=== PATIENT | female | born 1985 | race Caucasian/White ===

== ENCOUNTER 2024-11-15 16:29 | Emergency (ER) | payer SELFPAY ==
--- OUTSIDE RECORDS SUMMARY | 2024-11-15 16:33 | XMS REPORT | Continuity of Care Document ---
Author Name Unknown Address [address] [facility] [address] [place] [address] [facility] Address [address] [facility]. [address] [place] [address] Care Team Providers Care Record Keeper Name Role Phone Pcp, Patient Does Not Have A Primary Care Physic quintin Susana Hawk Attending Clinician Unavail able Ortho, Vls-Occup Therapy-Walkin Attending Clinic quintin Unavailable Chris Reed MD Attending Clinician [phone] CHRIS REED Attending Clinician Unavailable FRANKLIN WESTFALL Attending Clinician Unavailable FRANKLIN WESTFALL Attending Clinician Unavailable Franklin Mathias Attending Clinician [phone] Crystal Hernandez Attending Clinician Unavailable Therese Cortez Attending Clinician Unavailable Susana Hawk Attending Clinician [phone] Marquis Pak Attending Clinician Unavailab Dali Pugh Attending Clinician Unavailable Verónica Guido Attending Clinician Unavailable Ilana Miller Attending Clinician UnavailMatt Harris Attending Clinician Unavailable URBANO CALHOUN Attending Clinician Unavailable Only, Angel Uc Test Attending Clinician Unavailtasha pulliam Unknown, Attending Attending Clinician Unavailab Urbano Hwang MD Attending Clinician Genie Cisneros Attending Clinician Unavailable Genie Cisneros Attending Clinician [phone] Ilana Miller Attending Clinician [phone] Linnette Atkinson Attending Clinician [phone] FRANKLIN WESTFALL Admitting Clinician Unavailable Physician, No Primary or Family Admitting Clinic quintin Unavailable Marquis Pak Admitting Clinician Unavailab jose Payers Payer Name Policy Type Policy Number Effective Date Expirati on Date Source [employer] MEDICAID [id number] 2011 00:00:00 Problems Condition Name Condition Details Condition Category Status Onset Date Resolution Date Last Treatment Date Treating Clinician Comments Source Left hand pain Left hand pain Disease Active 2023-11 016 00:00: 00 [facility] Swelling of left hand Swelling of left hand Disease Active 2023-11 0-16 00:00: 00 [facility] Impaired dexterity Impaired dexterity Disease Active 2023-11 0-16 00:00: 00 [facility] Finger stiffness, left Finger stiffness, left Disease Active 2023-11 0-16 00:00: 00 [facility] No known active problems No known active problems Disease [facility] Syncope and collapse Syncope and collapse Problem [facility] [phone] Essential hypertensi on Problem [facility] Allergies, Adverse Reactions, Alerts Allergy Name Allergy Type Status Severity Reaction(s) Onset Date Inactive Date Treating Clinician Comments Source metronid azole DA Active SV ANAPHALACTIC SHOCK 2023-11 00:00: 00 [facility] lamotrig ine DA Active U ANAPHYLLAXIS 2023-11 00:00: 00 [facility] metronid azole DA Active SV ANAPHALACTIC SHOCK 04-03 00:00: 00 [facility] lamotrig ine DA Active U ANAPHYLLAXIS 6-03 00:00: 00 [facility] metronid azole DA Active SV ANAPHALACTIC SHOCK 2022-11 0 00:00: 00 [facility] lamotrig ine DA Active U ANAPHYLLAXIS 2022-11 022 00:00: 00 [facility] metronid azole DA Active SV ANAPHALACTIC SHOCK 8 00:00: 00 [facility] lamotrig ine DA Active U ANAPHYLLAXIS 8 00:00: 00 [facility] lamotrig ine DA Active U ANAPHYLLAXIS 515 00:00: 00 [facility] lamotrig ine drug allergy Active 11-21 00:00: 00 [facility] metronid azole drug allergy Active 11-21 00:00: 00 [facility] METRONID AZOLE HCL DRUG INGREDI Active High Anaphylaxis 02-20 00:00: 00 [facility] LAMOTRIG INE DRUG INGREDI Active High Anaphylaxis 02-20 00:00: 00 [facility] Metronid azole Hcl Propensi ty to adverse reaction s to drug Active Anaphylaxis 02-20 00:00: 00 [facility] Lamotrig ine Propensi ty to adverse reaction s Active Anaphylaxis 02-20 00:00: 00 [facility] metronid azole DA Active SV ANAPHALACTIC SHOCK 06-30 00:00: 00 [facility] lamotrig ine lamotrig ine Active Unknown [facility] metronid azole metronid azole Active Unknown [facility] Family History Family Member Diagnosis Comments Start Date Stop Date Sour e Father alcoholism (Cause Of ) 2015-11-21 00:00:00 2015-11-21 00:00:00 [facility] Mother hypertension 2015-11-21 00:00:00 2015-11-21 00:00:00 [facility] Mother Alive and well 2015-11-21 00:00:00 2015-11-21 00:00:00 [facility] Mother Thyroid disorder 2015-11-21 00:00:00 2015-11-21 00:00:00 [facility] Social History Social Habit Start Date Stop Date Quantity Comments Source Health-related Behavior 2024-03-29 00:00:00 [facility] Alcohol intake 2023-07-12 00:00:00 [facility] Tobacco use and exposure 2023-07-12 00:00:00 : No Details Available Quantity Details - : No Details Available [facility] Sexual orientation [facility] Sex Assigned At [facility] History of Tobacco Use [facility] Alcoholic beverage intake 2024-08-16 00:00:00 2024-08-16 00:00:00 [facility] History of Social function 2024-08-16 00:00:00 2024-08-16 00:00:00 [facility] Exposure to SARS-CoV-2 (event) 2022-06-16 00:00:00 2022-06-26 15:37:00 Not sure [facility] Smoking Status Start Date Stop Date Source Never smoked tobacco [facility] Unknown if ever smoked [facility] Medications Ordered Medication Name Filled Medication Name Start Date Stop Date Current Medication? Ordering Clinician Indication Dosage Frequency Signature (SIG) Comments Components Source lisinopriL 40 mg tablet 2023-11 14:48: 05 Yes 40mg Take 1 tablet by mouth in the morning. [facility] FLUoxetine (PROZAC) 20 mg capsule 2023-11 14:48: 05 Yes 20mg Take 1 capsule by mouth in the morning. [facility] FEXOFENADIN E HCL (LESLIE ORAL) 2023-11 12:37: 28 Yes Take by mouth. [facility] diphenhydrA MINE (BENADRYL) 25 mg capsule 2023-11 12:37: 28 Yes 25mg Take 1 capsule by mouth every 6 (six) hours as needed. [facility] Ibuprofen (ADVIL LIQUI-GEL) 200 mg Cap 2023-11 12:37: 28 Yes Take by mouth. [facility] acetaminoph en (TYLENOL) 325 mg tablet 2023-11 12:37: 28 Yes Take by mouth every 6 (six) hours as needed. [facility] HYDROcodone -acetaminop hen 5-325 mg tablet 2023-11 00:00: 00 08-16 04:59 :00 No [id number] 1{tbl} Take 1-2 tablets by mouth every 6 (six) hours as needed for Pain (scale 7-10) for up to 7 days. Indication s: acute pain [facility] lisinopril 10 mg tablet 2022-11 00:00: 00 No 1{table t} Q1D take 1 tablet by oral route every day [Pat Resp = 60 pct;] Group B Group B Group B [facility] fluoxetine 10 mg capsule 2022-11 00:00: 00 No 1{capsu le} Q1D take 1 capsule by oral route every day [Pat Resp = 60 pct;] Group B Group B [facility] Victoza 3-Luis 0.6 mg/0.1 mL (18 mg/3 mL) subcutaneou s pen injector 2022-11 00:00: 00 No inject (1.2MG) by subcutaneo us route every day . [Pat Resp = 60 pct;] Group B Group B Group B [facility] Victoza 18 MG/3ML Victoza 18 MG/3ML 2022-11 00:00: 00 No QD Victoza 18 MG/3ML FLUoxetine HCl 10 MG FLUoxetine HCl 10 MG 2022-11 00:00: 00 No 2{capsu le} FLUoxetine HCl 10 MG Victoza 3-Luis 0.6 mg/0.1 mL (18 mg/3 mL) subcutaneou s pen injector 07-22 00:00: 00 No 1.2 Q1D inject (1.2MG) by subcutaneo us route every day . For the first week, inject only 0.6 mg daily and increase to 1.2 mg if GI symptoms are tolerable [Pat Resp = 60 pct;] Group B [facility] lisinopril 10 mg tablet 07-15 15:27: 00 07-15 00:00 :00 No 1{table t} Q1D take 1 tablet by oral route every day [Pat Resp = 60 pct;] Group B [facility] Ozempic 0.25 mg or 0.5 mg (2 mg/3 mL) subcutaneou s pen injector 07-15 00:00: 00 No .5 Q1W inject (0.5MG) by subcutaneo us route every week on the same day of each week [Pat Resp = 60 pct;] Group B [facility] lisinopril 10 mg tablet 07-15 00:00: 00 No 1{table t} Q1D take 1 tablet by oral route every day [Pat Resp = 60 pct;] Group B Group B [facility] fluoxetine 10 mg capsule 07-15 00:00: 00 No 1{capsu le} Q1D take 1 capsule by oral route every day [Pat Resp = 60 pct;] Group B [facility] metoprolol succinate ER 25 mg tablet,exte nded release 24 hr 07-12 11:19: 00 07-12 00:00 :00 No 1{table t} Q1D take 1 tablet by oral route every day [Pat Resp = 60 pct;] Group B [facility] buspirone 5 mg tablet 06-28 10:59: 00 No 1{table t} Q12H take 1 tablet by oral route 2 times every day [Pat Resp = 60 pct;] Group B [facility] metoprolol succinate ER 25 mg tablet,exte nded release 24 hr 06-28 10:58: 00 No 1{table t} Q1D take 1 tablet by oral route every day [Pat Resp = 60 pct;] Group B [facility] lisinopril 10 mg tablet 06-28 10:58: 00 No 1{table t} Q1D take 1 tablet by oral route every day [Pat Resp = 60 pct;] Group B [facility] gabapentin 100 mg capsule 06-28 10:56: 00 06-28 00:00 :00 No 1{capsu le} Q8H take 1 Capsule by oral route 3 times every day [No discount] [facility] Lexapro 10 mg tablet 06-28 10:56: 00 06-28 00:00 :00 No 1{table t} Q1D take 1 tablet by oral route every day [No discount] [facility] predniSONE (DELTASONE) 20 mg tablet 03-09 00:00: 00 Yes 20mg daily x 5 days, then 20mg every other day x 5 doses [facility] predniSONE (DELTASONE) 20 mg tablet 03-02 00:00: 00 Yes 40mg Take 2 Tabs by mouth daily. [facility] triamcinolo ne acetonide (KENALOG) 0.1 % ointment 03-02 00:00: 00 Yes Apply to area(s) 2 (two) times daily. [facility] FEXOFENADIN E HCL (LESLIE ORAL) 02-22 14:53: 33 Yes Take by mouth. [facility] acetaminoph en (TYLENOL) 325 mg tablet 02-20 08:55: 48 Yes Take by mouth every 6 (six) hours as needed. [facility] diphenhydrA MINE (BENADRYL) 25 mg capsule 02-20 08:55: 47 Yes 25mg Take 25 mg by mouth every 6 (six) hours as needed. [facility] Ibuprofen (ADVIL LIQUI-GEL) 200 mg Cap 02-20 08:55: 47 Yes Take by mouth. [facility] triamcinolo ne acetonide (TRIDERM) 0.1 % cream 02-20 00:00: 00 Yes Apply to area(s) 2 (two) times daily. [facility] hydrOXYzine (ATARAX) 10 mg tablet 02-20 00:00: 00 Yes 10mg Take 1 Tab by mouth every 8 (eight) hours as needed for Itching. [facility] Lisinopril 40 MG Lisinopril 40 MG No 1{table t} QD Lisinopril 40 MG Vital Signs Vital Name Observation Time Observation Value Comments S ource Systolic blood pressure 2024-08-16 19:48:00 164 mm[Hg] [facility] Diastolic blood pressure 2024-08-16 19:48:00 108 mm[Hg] [facility] Heart rate 2024-08-16 19:48:00 75 /min [facility] Body height 2024-08-16 19:48:00 170.2 cm [facility] Body weight 2024-08-16 19:48:00 107.956 kg [facility] BMI 2024-08-16 19:48:00 37.28 kg/m2 [facility] Oxygen saturation in Arterial blood by Pulse oximetry 2024-08-16 19:48:00 98 /min [facility] Systolic blood pressure 2024-08-08 19:50:04 146 mm[Hg] [facility] Diastolic blood pressure 2024-08-08 19:50:04 94 mm[Hg] [facility] Heart rate 2024-08-08 19:50:04 73 /min [facility] Respiratory rate 2024-08-08 19:50:04 18 /min [facility] Oxygen saturation in Arterial blood by Pulse oximetry 2024-08-08 19:50:04 97 /min [facility] Body temperature 2024-08-08 17:37:00 36.61 Luz Marina [facility] Body height 2024-08-08 17:34:00 170.2 cm [facility] Body weight 2024-08-08 17:34:00 104.327 kg [facility] BMI 2024-08-08 17:34:00 36.02 kg/m2 [facility] height 2024-05-29 09:30:00 67 [in_i] [facility] weight-kg 2024-05-29 09:30:00 105.69 kg [facility] bmi 2024-05-29 09:30:00 36.49 kg/m2 [facility] temperature 2024-05-29 09:30:00 97.9 [degF] [facility] heart rate 2024-05-29 09:30:00 76 /min [facility] blood pressure systolic 2024-05-29 09:30:00 166 mm[Hg] [facility] blood pressure diastolic 2024-05-29 09:30:00 114 mm[Hg] [facility] Body height 2023-07-12 11:26:00 170.18 cm [facility] Body Weight 2023-07-12 11:26:00 109.316 kg [facility] Intravascular Systolic 2023-07-12 11:26:00 125 mm[Hg] [facility] Intravascular Diastolic 2023-07-12 11:26:00 74 mm[Hg] [facility] Heart Rate 2023-07-12 11:26:00 76 /min [facility] Body Temperature 2023-07-12 11:26:00 36.67 Luz Marina [facility] Respiratory rate 2023-07-12 11:26:00 18 /min [facility] Body mass index 2023-07-12 11:26:00 37.75 kg/m2 [facility] SaO2 % BldA PulseOx 2023-07-12 11:26:00 98 /min [facility] Body height 2023-06-28 10:59:00 170.18 cm [facility] Body Weight 2023-06-28 10:59:00 108.409 kg [facility] Intravascular Systolic 2023-06-28 10:59:00 154 mm[Hg] [facility] Intravascular Diastolic 2023-06-28 10:59:00 88 mm[Hg] [facility] Heart Rate 2023-06-28 10:59:00 62 /min [facility] Body Temperature 2023-06-28 10:59:00 36.56 Luz Marina [facility] Respiratory rate 2023-06-28 10:59:00 18 /min [facility] Body mass index 2023-06-28 10:59:00 37.43 kg/m2 [facility] SaO2 % BldA PulseOx 2023-06-28 10:59:00 99 /min [facility] Procedures Procedure Date / Time Performed Performing Clinician Source POCT TEST 2024-08-08 19:02:00 Reina Westfall [facility] XR HAND 3+ VW LEFT 2024-08-08 18:05:00 Franklin Westfall [facility] Established Patient Office Visit-Level Four 2023-09-20 00:00:00 [facility] Established Patient Office Visit-Level Three 2023-08-09 00:00:00 [facility] Individual & Fam psychotherapy (60 min.) 2023-07-26 00:00:00 [facility] ASSAY OF FREE THYROXINE 4 2023-07-12 00:00:00 [facility] Thyroid Stimulating Hormone (TSH) 2023-07-12 00:00:00 [facility] Comprehensive Metabolic Panel 2023-07-12 00:00:00 [facility] Lipid Panel 2023-07-12 00:00:00 [facility] Hepatitis Panel - Acute 2023-07-12 00:00:00 [facility] Hemoglobin A1C 2023-07-12 00:00:00 [facility] Complete Blood Count (CBC) 2023-07-12 00:00:00 [facility] Syphilis Test, qualitative 2023-07-12 00:00:00 [facility] HIV-1 antigen(s), HIV-1 and HIV-2 antibodies, single result 2023-07-12 00:00:00 [facility] Established Patient Office Visit-Level Four 2023-07-12 00:00:00 [facility] EKG (electrocardiogram) 2023-06-28 00:00:00 [facility] Established Patient Office Visit-Level Four 2023-06-28 00:00:00 [facility] Established Patient Office Visit-Level Three 2018-12-27 00:00:00 [facility] EKG (electrocardiogram) 2016-02-05 00:00:00 [facility] Established Patient Office Visit-Level Three 2016-02-05 00:00:00 [facility] Left Without Being Seen 2016-01-29 00:00:00 [facility] EKG (electrocardiogram) 2016-01-01 00:00:00 [facility] Established Patient Office Visit-Level Four 2016-01-01 00:00:00 [facility] PSYTX PT&/FAMILY 60 MINUTES 2015-12-31 00:00:00 [facility] New Patient Office Visit-Level Three 2015-11-21 00:00:00 [facility] Complete Blood Count (CBC) 2015-11-21 00:00:00 [facility] Comprehensive Metabolic Panel 2015-11-21 00:00:00 [facility] ASSAY OF FREE THYROXINE 4 2015-11-21 00:00:00 [facility] Thyroxine, total 2015-11-21 00:00:00 Mauro [facility] Thyroid Stimulating Hormone (TSH) 2015-11-21 00:00:00 [facility] Thyroid Hormone (T3&T4) uptake or binding ratio 2015-11-21 00:00:00 [facility] Limited Oral Evaluation Problem Focused 2015-09-06 00:00:00 [facility] Encounters Start Date/Time End Date/Time Encounter Type Admission Type Attending Clinicians Care Facility Care Department Encounter ID Source 2024-07-24 10:08:02 Outpatient Susana Hawk [facility] [id number] Natalie fuentes 2024-05-29 09:05:01 Outpatient Susana Hawk [facility] [id number] Natalie fuentes 2024-08-24 00:00:00 2024-08-24 00:00:00 (TEL) [facility] [id number] Natalie fuentes 2024-08-16 15:00:00 2024-08-16 15:30:00 Ancillary Visit Ortho, Vls-Occup Therapy-Chris Mccollum V[facility]Occup Therapy-[facility] [id number] [facility] 2024-08-16 14:15:00 2024-08-16 15:03:22 Outpatient CHRIS COTO [facility] [id number] [facility] 2024-08-16 14:15:00 2024-08-16 15:03:22 Office Visit Chris Reed [facility] [id number]..[id number] [facility] 2024-08-16 15:00:00 2024-08-16 15:00:00 Outpatient CHRIS COTO [facility] [id number] [facility] 2024-08-08 12:37:00 2024-08-08 14:51:00 Emergency X FRANKLIN WESTFALL [facility] ERT [id number] [facility] 2024-08-08 12:37:00 2024-08-08 14:51:00 Emergency Franklin Westfall [facility] [id number] [facility] 2024-08-07 10:09:00 2024-08-07 11:21:00 Emergency EM Crystal Hernandez [facility] [id number] [facility] 2024-07-24 00:00:00 2024-07-24 00:00:00 (TEL) CLS CLS [id number] [facility] 2024-07-24 00:00:00 2024-07-24 00:00:00 (TEL) CLS CLS [id number] [facility] 2024-05-29 00:00:00 2024-05-29 00:00:00 Office Visit- Est Pt.- Level 4 CLS CLS [id number] [facility] ties 2024-04-03 22:27:00 2024-04-04 00:15:00 Emergency EM Therese Cortez [facility] [id number] [facility] 2024-03-29 10:32:00 2024-03-29 10:32:00 Outpatient Susana Hawk [facility] CHW [id number] [facility] 2024-03-29 10:32:00 2024-03-29 10:32:00 Outpatient Susana Hawk Ramez [id number] [facility] 2023-09-22 14:19:00 2023-09-22 14:19:00 [facility] [id number] 2023-09-22 14:19:00 2023-09-22 14:19:00 Outpatient HawkSusana Harper CHW [id number] [facility] 2023-09-20 09:30:00 2023-09-20 09:30:00 Outpatient [facility] Services CHW CHW [id number] [facility] 2023-09-20 09:30:00 2023-09-20 09:30:00 Establishshasha dowell Patient Office Visit-[facility] Carine Susana Harper W [id number] [facility] 2023-08-23 13:13:00 2023-08-24 15:25:00 Inpatient Marquis Yu [facility] [id number] [facility] 2023-08-22 04:07:00 2023-08-22 09:55:00 Emergency EM ZaidDali [facility] [id number] [facility] 2023-08-20 09:20:00 2023-08-20 09:20:00 Outpatient Verónica Guido W CHW [id number] [facility] 2023-08-20 09:20:00 2023-08-20 09:20:00 Outpatient W [id number] [facility] 2023-08-19 17:59:00 2023-08-19 17:59:00 Outpatient Susana Hawk Harper W W [id number] [facility] 2023-08-09 11:30:00 2023-08-09 11:30:00 Outpatient In[facility], Services CHW W [id number] [facility] 2023-08-09 11:30:00 2023-08-09 11:30:00 Jessie dowell Patient Office Visit-Aimee HawkSusana Harper W [id number] [facility] 2023-07-26 09:00:00 2023-07-26 09:00:00 Outpatient Ilana Miller W W [id number] [facility] 2023-07-26 09:00:00 2023-07-26 09:00:00 Individual & Fam psychother apy (60 min.) W [id number] [facility] 2023-07-23 09:36:00 2023-07-23 09:36:00 [facility] [id number] 2023-07-22 14:07:00 2023-07-22 14:07:00 [facility] [id number] [facility] 2023-07-22 14:07:00 2023-07-22 14:07:00 Outpatient Susana Hawk W [id number] [facility] 2023-07-21 16:03:00 2023-07-21 16:03:00 [facility] [id number] [facility] 2023-07-19 11:46:00 2023-07-19 11:46:00 [facility] [id number] [facility] 2023-07-19 11:46:00 2023-07-19 11:46:00 Outpatient Susana Hawk [facility] [id number] [facility] 2023-07-15 15:26:00 2023-07-15 15:26:00 [facility] [id number] [facility] 2023-07-15 15:26:00 2023-07-15 15:26:00 Outpatient Susana Hawk W [id number] [facility] 2023-07-12 11:30:00 2023-07-12 11:30:00 [facility] [id number] [facility] 2023-07-12 11:30:00 2023-07-12 11:30:00 Jessie dowell Patient Office Visit-Aimee Restrepo Susana Hawk [facility] [id number] [facility] 2023-07-01 10:45:00 2023-07-01 10:45:00 [facility] [id number] [facility] 2023-07-01 10:45:00 2023-07-01 10:45:00 Outpatient Susana Hawk [facility] [id number] [facility] 2023-06-30 09:12:00 2023-06-30 09:12:00 [facility] [id number] [facility] 2023-06-30 09:12:00 2023-06-30 09:12:00 Outpatient Susana Hawk W [id number] [facility] 2023-06-29 20:43:00 2023-06-29 23:51:00 Emergency EM Matt Guido HCACL TERS [id number] 87 [facility] 2023-06-28 11:00:00 2023-06-28 11:00:00 Outpatient Susana Hawk Harper [facility] CHW [id number] [facility] 2023-06-28 11:00:00 2023-06-28 11:00:00 Jessie dowell Patient Office Visit-[facility] HawkSusana french Harper [facility] [id number] 27-44ba-85b [id number] 9af [id number] [facility] 2022-06-26 15:15:00 2022-06-26 15:42:39 Outpatient URBANO VILLANUEVA [facility] [id number] [facility] 2022-06-26 15:15:00 2022-06-26 15:42:39 Laboratory Only Only, [facility] Test Unknown, Attending Urbano Calhoun [facility] [id number] [id number] [id number] [facility] 2022-06-26 15:15:00 2022-06-26 15:15:00 Outpatient URBANO VILLANUEVA [facility] [id number] [facility] 2018-12-27 15:40:00 2018-12-27 15:40:00 Outpatient Genie Cisneros W CHW [id number] [facility] 2018-12-27 15:40:00 2018-12-27 15:40:00 Establishe d Patient Office Visit-Aimee l Genie Marr [facility] [id number] 27-44ba-85b [id number] 9af [id number] [facility] 2016-02-05 11:15:00 2016-02-05 11:15:00 Jessie d Patient Office Visit-Aimee Romero [facility] [id number] 27-44ba-85b [id number] 9af [id number] [facility] 2016-01-29 09:00:00 2016-01-29 09:00:00 Outpatient W [id number] 27-44ba-85b [id number] 9af [id number] [facility] 2016-01-01 09:15:00 2016-01-01 09:15:00 Jessie d Patient Office Visit-Aimee Restrepo [facility] [id number] 27-44ba-85b [id number] 9af [id number] [facility] 2015-12-31 09:00:00 2015-12-31 09:00:00 PSYTX PT&/FAMILY 60 MINUTES Ilana Miller [facility] [id number] 27-44ba-85b [id number] 9af [id number] [facility] 2015-11-21 10:45:00 2015-11-21 10:45:00 New Patient Office Visit-Aimee Romero [facility] [id number] 27-44ba-85b [id number] 9af [id number] [facility] 2015-09-06 09:00:00 2015-09-06 09:00:00 Outpatient Linnette Atkinson [facility] [id number] 27-44ba-85b [id number] 9af [id number] [facility] Results Test Description Test Time Test Comments Results Result Co mments Source [facility] [id number] 18:49:45ORDERING PHYSICIAN: FRANKLIN WESTFALL THREE VIEWS LEFT HAND. DATE: 08/08/2024 1:48 PM CLINICAL INDICATIONS: hand pain, concern for fracture COMPARISON: None. FINDINGS: ?Three views of the left hand demonstrate no evidence for acutefracture, subluxation or destructive osseous lesion. ?No significant soft tissue swelling or radiopaque foreign body is identified.[facility] HEAD/BRAIN W/O [id number] 23:13:00 [facility] : 1985 Sex: F Name: BASIM GUERRERO [place] FSED : 1985 Age/S: 38 / F Unit #: [id number] Loc: [facility] [place], [place] Phys: Therese Cortez MD Acct: [id number] Dis Date: Status: PRE ER PHONE #: Exam Date: 04/03/2024 3463 FAX #: Reason: FALL EXAMS: CPT CODE: [id number] CT HEAD/BRAIN W/O CONT 65711 EXAM:- CT HEAD/BRAIN W/O CONT HISTORY: FALL . TECHNIQUE: CT of the brain without contrast: Transaxial images were performed through the brain without intravenous contrast. CT scan performed using appropriate/available dose optimization/reduction techniques. Automated exposure control, adjustment of the MAA and/or KV according to patient size, and or use of IV iterative reconstruction images. Dictation/location code: H-100 COMPARISON: None. FINDINGS: Posterior fossa: Normal. Supratentorial: No acute i nfarct, hemorrhage, edema, masses or midline shift seen. The ventricles are not enlarged. Other: None. IMPRESSION: No acute intracranial abnormality. at 2313 Reported and signed by: Abiodun Andrade M.D. CC: Therese Cortez MD Technologist:Marci Magallon, RT(R)(CT) CTDI: DLP: Trnscb Date/Time: 04/03/2024 (2312) [email or web address] Orig Print D/T: S: 04/03/2024 (2315) PAGE 1 Signed Report- XR CHEST 1 [id number] 23:10:00 [facility] : 1985 Sex: F FAX: Therese Ortiz MD [phone] [place]: St: PRE Name: BASIM GUERRERO [place] FSED : 1985 Age/S: 38/F Unit #: [id number] Loc: [facility] [place], [place] Phys: Therese Cortez MD Acct: [id number] DisDate: Status: PRE ER PHONE #: Exam Date: 04/03/20241 FAX #: Reason: FALL EXAMS: CPT CODE: [id number] XR CHEST 1 V 06811 Chest Radiograph History: FALL Comparison: June 29, 2023 Location: H45 A single frontal view of the chest is submitted. The heart appears unchanged in size. Pulmonary vasculature is unremarkable. The visualized lung cruz appear to be free of disease. The bones appear unchanged. IMPRESSION: There is no radiographic evidence of acute cardiopulmonary disease. at 2310 Reported and signed by: Hebert Wiley M.D. CC: Therese Cortez MD Technologist: RT Mitchel(R)(CT) Trnscrd Date/Time/By: 04/03/2024 (2309) : By: ElePMT Orig Print D/T: S: 04/03/2024 (2312) PAGE 1 Signed ReportCOMPREHENSIVE METABOLIC [id number] 03:05:00* Test Item Value Reference Range Interpretation Comme nts SODIUM (test code = NA) 139 mmol/l 134.0-147.0 N POTASSIUM (test code = K) 3.3 mmol/L 3.6-5.2 L CHLORIDE (test code = CL) 107 mmol/l 98.0-107.0 N CARBON DIOXIDE (test code = CO2) 25.1 mmol/l 21.0-33.0 N ANION GAP (test code = GAP) 10.2 0-20 N GLUCOSE (test code = GLU) 86 mg/dl 70.0-110.0 N BLOOD UREA NITROGEN (test code = BUN) 6 mg/dl 7.0-18.0 L GLOMERULAR FILTRATION RATE (test code = GFR) 88 mL/min The Glomerular Filtration Rate is a calculated parameterbased on serum Creatinine, patient age and sex. GFR valuesless than 60 mL/min/1.73 square meters are indicative ofChronic Kidney Disease. Values less than 15 mL/min/1.73square meters indicate Kidney failure. The calculation forGFR is based on the CKD-EPI (2020) calculation. This formulais race indifferent and is the recommended formula for GFRby the National Kidney Foundation for Adults.The GFR will not calculate if the sex is unknown or if thepatient's age is <18 years. CREATININE (test code = CREAT) 0.86 mg/dL 0.60-1.30 N ESTIMATED CREAT CLEARANCE (test code = ECRCL) 85 mL/min >30 TOTAL PROTEIN (test code = PROT) 6.1 gm/dL 6.4-8.2 L ALBUMIN (test code = ALB) 2.4 gm/dl 3.2-4.7 L CALCIUM (test code = CA) 7.6 mg/dl 8.0-10.5 L BILIRUBIN TOTAL (test code = BILT) 0.3 mg/dl 0.0-1.0 N SGOT/AST (test code = AST) 24 Units/L 15-37 N SGPT/ALT (test code = ALT) 30 Units/L 12.0-78.0 N ALKALINE PHOSPHATASE TOTAL (test code = ALKP) 61 Units/L 50.0-136.0 N CBC W/AUTO [id number] 02:43:00* Test Item Value Reference Range Interpretation Comme nts WHITE BLOOD CELL (test code = WBC) 7.7 K/mm3 4.5-11.0 N RED BLOOD CELL (test code = RBC) 3.78 M/mm3 3.80-5.20 L HEMOGLOBIN (test code = HGB) 10.4 gm/dL 12.0-16.0 L HEMATOCRIT (test code = HCT) 32.5 % 36.0-48.0 L MEAN CELL VOLUME (test code = MCV) 86.0 UM3 82.0-99.0 N MEAN CELL HGB (test code = MCH) 27.5 UUG 25.5-32.5 N MEAN CELL HGB CONCETRATION (test code = MCHC) 32.0 gm/dL 29.0-35.5 N RED CELL DISTRIBUTION WIDTH (test code = RDW) 14.1 % 11.5-15.0 N RED CELL DISTRIBUTION WIDTH SD (test code = RDW-SD) 44.2 fL 34.8-50.2 N PLATELET COUNT (test code = PLT) 244 K/mm3 150-400 N MEAN PLATELET VOLUME (test c ode = MPV) 9.2 fl 7.4-10.4 N NEUTROPHIL % (test code = NT%) 61.5 % 49.0-76.0 N IMMATURE GRANULOCYTE % (test code = IG%) 0.3 % 0.0-0.4 N LYMPHOCYTE % (test code = LY%) 26.2 % 23.0-38.0 N MONOCYTE % (test code = MO%) 6.6 % 1.0-10.0 N EOSINOPHIL % (test code = EO%) 5.0 % 1.0-5.0 N BASOPHIL % (test code = BA%) 0.4 % 0.0-1.0 N NUCLEATED RBC % (test code = NRBC%) 0.0 % 0.0-0.1 N NEUTROPHIL # (test code = NT#) 4.7 K/mm3 2.4-6.3 N IMMATURE GRANULOCYTE # (test code = IG#) 0.02 x10 3/uL 0.00-0.07 N LYMPHOCYTE # (test code = LY#) 2.0 K/mm3 1.2-4.0 N MONOCYTE # (test code = MO#) 0.5 K/mm3 0.0-0.6 N EOSINOPHIL # (test code = EO#) 0.4 K/MM3 0.0-0.7 N BASOPHIL # (test code = BA#) 0.0 K/mm3 0.0-0.2 N NUCLEATED RBC # (test code = NRBC#) 0.00 X10 3uL 0.00-0.01 N - XR ABDOMEN 1 [id number] 12:17:00 [facility] : 1985 Sex: FFAX: Marquis Heller [phone] [place]: St: ADM FAX: Tate Morales [phone] - Name: BASIM GUERRERO [facility] : 1985 Age/S: 38/F [address] Unit #: [id number] Loc: [address] [place], [place] Phys: Tate Olmedo [address] Acct: [id number] Dis Date: Status: ADM IN PHONE #: [phone] Exam Date: 08/23/2023 1200 FAX #: [phone] Reason: Progression of kidney stone EXAMS: CPT CODE: [id number] XR ABDOMEN 1 V 70452 REASON FOR EXAM: Right renal stone in the pelvis. Abdomen, single view. COMPARISON: CT abdomen pelvis from August 22, 2023. No calculus seen in the distal third of the ureter. This may imply passage of the stone. No other renal outline calculi. Normal gas pattern. IUD in the mid pelvis. IMPRESSION: No identifiable right distal ureteral calculus. This may have been passed. If suspicious symptoms continue, repeat CT, unenhanced of the pelvis only may be needed. Normal gas pattern. Location: U19 at 1217 Reported and signed by: Tyler Seals MD CC: Marquis Pak MD;Tate MONTAGUE Technologist: VIN TORRES Trnscrd Date/Time/By: 08/23/2023 (1217) : By: [id number] PAGE 1 Signed Report FAX: Marquis Heller [phone] [place]: St: ADM FAX: Tate Morales [phone] Name: BASIM GUERRERO [facility] : 1985 Age/S: 38/F [address] Unit #: [id number] Loc: [address] [place], [place] Phys: Tate Olmedo [address] Acct: [id number] Dis Date: Status: ADM IN PHONE #: [phone] Exam Date: 08/23/2023 1200 FAX #: [phone] Reason: Progression of kidney stone EXAMS: CPT CODE: [id number] XR ABDOMEN 1 V 56257 (Continued) Orig Print D/T: S: 08/23/2023 (1220) PAGE 2 Signed ReportCOMPREHENSIVE METABOLIC [id number] 19:03:00* Test Item Value Reference Range Interpretation Comme nts SODIUM (test code = NA) 135 mmol/l 134.0-147.0 N POTASSIUM (test code = K) 3.4 mmol/L 3.6-5.2 L CHLORIDE (test code = CL) 104 mmol/l 98.0-107.0 N CARBON DIOXIDE (test code = CO2) 25.1 mmol/l 21.0-33.0 N ANION GAP (test code = GAP) 9.3 0-20 N GLUCOSE (test code = GLU) 97 mg/dl 70.0-110.0 N BLOOD UREA NITROGEN (test code = BUN) 7 mg/dl 7.0-18.0 N GLOMERULAR FILTRATION RATE (test code = GFR) 73 mL/min The Glomerular Filtration Rate is a calculated parameterbased on serum Creatinine, patient age and sex. GFR valuesless than 60 mL/min/1.73 square meters are indicative ofChronic Kidney Disease. Values less than 15 mL/min/1.73square meters indicate Kidney failure. The calculation forGFR is based on the CKD-EPI (2020) calculation. This formulais race indifferent and is the recommended formula for GFRby the National Kidney Foundation for Adults.The GFR will not calculate if the sex is unknown or if thepatient's age is <18 years. CREATININE (test code = CREAT) 1.01 mg/dL 0.60-1.30 N ESTIMATED CREAT CLEARANCE (test code = ECRCL) 73 mL/min >30 TOTAL PROTEIN (test code = PROT) 6.3 GM/DL 6.0-8.1 N ALBUMIN (test code = ALB) 2.7 gm/dL 3.2-4.7 L CALCIUM (test code = CA) 7.4 mg/dl 8.0-10.5 L BILIRUBIN TOTAL (test code = BILT) 0.3 mg/dl 0.0-1.0 N SGOT/AST (test code = AST) 43 Units/L 15-37 H SGPT/ALT (test code = ALT) 39 Units/L 12.0-78.0 N ALKALINE PHOSPHATASE TOTAL (test code = ALKP) 66 Units/L 50.0-136.0 N [id number] 19:03:00* Test Item Value Reference Range Interpretation Comme nts MAGNESIUM (test code = MAG) 1.6 mg/dl 1.8-2.4 L CBC W/AUTO [id number] 18:47:00* Test Item Value Reference Range Interpretation Comme nts WHITE BLOOD CELL (test code = WBC) 12.7 K/mm3 4.5-11.0 H RED BLOOD CELL (test code = RBC) 4.01 M/mm3 3.80-5.20 N HEMOGLOBIN (test code = HGB) 11.2 gm/dL 12.0-16.0 L HEMATOCRIT (test code = HCT) 34.4 % 36.0-48.0 L MEAN CELL VOLUME (test code = MCV) 85.8 UM3 82.0-99.0 N MEAN CELL HGB (test code = MCH) 27.9 UUG 25.5-32.5 N MEAN CELL HGB CONCETRATION (test code = MCHC) 32.6 gm/dL 29.0-35.5 N RED CELL DISTRIBUTION WIDTH (test code = RDW) 13.6 % 11.5-15.0 N RED CELL DISTRIBUTION WIDTH SD (test code = RDW-SD) 43.0 fL 34.8-50.2 N PLATELET COUNT (test code = PLT) 262 K/mm3 150-400 N MEAN PLATELET VOLUME (test c ode = MPV) 9.7 fl 7.4-10.4 N NEUTROPHIL % (test code = NT%) 80.0 % 49.0-76.0 H IMMATURE GRANULOCYTE % (test code = IG%) 0.3 % 0.0-0.4 N LYMPHOCYTE % (test code = LY%) 12.7 % 23.0-38.0 L MONOCYTE % (test code = MO%) 6.4 % 1.0-10.0 N EOSINOPHIL % (test code = EO%) 0.3 % 1.0-5.0 L BASOPHIL % (test code = BA%) 0.3 % 0.0-1.0 N NUCLEATED RBC % (test code = NRBC%) 0.0 % 0.0-0.1 N NEUTROPHIL # (test code = NT#) 10.2 K/mm3 2.4-6.3 H IMMATURE GRANULOCYTE # (test code = IG#) 0.04 x10 3/uL 0.00-0.07 N LYMPHOCYTE # (test code = LY#) 1.6 K/mm3 1.2-4.0 N MONOCYTE # (test code = MO#) 0.8 K/mm3 0.0-0.6 H EOSINOPHIL # (test code = EO#) 0.0 K/MM3 0.0-0.7 N BASOPHIL # (test code = BA#) 0.0 K/mm3 0.0-0.2 N NUCLEATED RBC # (test code = NRBC#) 0.00 X10 3uL 0.00-0.01 N [id number] 11:46:00* Test Item Value Reference Range Interpretation Comme nts GLUBED (test code = GLUBED) 90 mg/dL 70-110 N - CT ABD PELVIS W/O [id number] 05:38:00 [facility] : 1985 Sex: F Name: BASIM GUERRERO [place] [facility] : 1985 Age/S: 38 / F Unit #: [id number] Loc: [place], [place] Phys: Dali Mar DO Acct: [id number] Dis Date: Status: REG ER PHONE #: Exam Date: 08/22/2023 3312 FAX #: Reason: right flank pain EXAMS: CPT CODE: [id number] CT ABD PELVIS W/O CONT 25252 EXAMINATION: - CT ABD PELVIS W/O CONT CLINICAL INDICATION: Female, 38 years old with right flank pain TECHNIQUE: Thin section axial noncontrast contiguous images were obtained through the abdomen and pelvis followed by coronal and sagittal multiplanar reformations. One or more of the following dose reduction techniques were used: Automated exposure control, adjustment of the mA and/or kV accordingto patient size, and/or iterative reconstruction. Unless otherwise specified, incidental findings do not require dedicated imaging follow-up. COMPARISON: None FINDINGS: Characterization of the solid organs is limited by lack of contrast media. Lower Chest: Visualized lung bases are clear. Heart is normal in size. No pericardial or pleural effusion. Liver: Normal in size and contour. Bile ducts are of normal caliber. Gallbladder: No stones, wall thickening, or pericholecystic fluid. Pancreas: Normal appearance. Spleen: Normal in size and contour. Adrenals: Normal configuration. Kidneys and ureters: Moderate right hydronephrosis and hydroureter secondary to a 5 mm right distal 3rd ureteric sto ne. Punctate 1 mm nonobstructing left renal calculus, scattered punctate 1 mm calculi are present within the right kidney. Bladder/Reproductive Organs: Normal in appearance. Uterus is retroverted, IUD noted. Bowel: Moderate feces, no ileus or obstruction. Normal appendix. No PAGE 1 Signed Report (CONTINUED) Name: BASIM GUERRERO [place] [facility] : 1985 Age/S: 38 / F Unit #: [id number] Loc: [place], [place] Phys: Dali Mar DO Acct: [id number] Dis Date: Status: REG ER PHONE #: Exam Date: 08/22/2023 0518 FAX #: Reason: right flank pain EXAMS: CPT CODE: [id number] CT ABD PELVIS W/O CONT 47186 (Continued) free air, free fluid, or fluid collection. Lymph nodes: There are no pathologically enlarged abdominopelvic lymph nodes. Retroperitoneum: No mass or hemorrhage. Abdominal aorta and inferior vena cava are normal in course and caliber. Abdominal wall: No hernia or mass. Bones: No acute abnormality or suspicious bony lesion. IMPRESSION: 1. 5.1 mm right distal 3rd ureteric stone with moderate right hydronephrosis and hydroureter. at 0538 Reported and signed by: Woodrow Casiano M.D. CC: Dali Mar DO Technologist:Renetta Samaniego RT(R)(CT) CTDI: DLP: Trnscb Date/Time: 08/22/2023 (0538) [id number] Orig Print D/T: S: 08/22/2023 (0527) PAGE 2 Signed ReportCOMPREHENSIVE METABOLIC [id number] 04:58:00* Test Item Value Reference Range Interpretation Comme nts POC SODIUM (test code = ANDREAS) 142 mmol/L 134-147 N Testing performe d at:[facility] [id number] [place] [address] POC POTASSIUM (test code = EDK) 3.4 mmol/L 3.4-5.8 N POC CHLORIDE (test code = EDCL) 106 mmol/L 100-108 N POC TCO2 (test code = EDTCO2) 26 mmol/L 24-30 N POC ANION GAP (test code = EDAGAP) 10 0-20 N POC BUN (test code = EDBUN) 10 mg/dL 3-25 N POC CREATININE (test code = EDCRE) 0.9 mg/dL 0.6-1.3 N POC GLUCOSE (test code = EDGLUC) 114 mg/dL 70-110 H POC CALCIUM (test code = EDCA) 9.8 mg/dL 7.0-11.0 N POC eGFR (test code = EDGFR) 83 mL/min See_Comment eGFR is not calc ulated if age <18 yrs, if the sex in EHR islisted as unknown or the creatinine level is below assayrange.This result value is determined by the eGFR 2020 CKD-EPIformula using serum creatinine, age and sex, excluding arace coefficient. The assay for creatinine is traceable tothe IDOH reference method. Chronic kidney disease (CKD) maynot be detectable based solely on creatinine levels. A eGFR> 60 does not rule out mild renal disease. To distinguishnormal renal function from mild renal disease, furtherlaboratory testing may be required. [Automated message] The system which generated this result transmitted reference range: >or=60. The reference range was not used to interpret this result as normal/abnormal. POC ALBUMIN (test code = EDALB) 3.4 g/dL 3.5-5.0 L POC TOTAL PROTEIN (test code = EDTP) 7.5 g/dL 5.0-8.0 N POC BILIRUBIN TOTAL (test code = EDTBIL) 0.4 mg/dL 0.0-1.0 N POC AST (test code = EDAST) 21 U/L 15-37 N POC ALT (test code = EDALT) 24 U/L 30-65 L POC ALKALINE PHOSPHATASE (test code = EDALP) 76 U/L 20-125 N URINALYSIS [id number] 04:53:00* Test Item Value Reference Range Interpretation Comme nts POC URINE COLOR (test code = EDCOLU) Yellow Yellow Testing performe d at:[facility] [address] [place] [address] POC URINE CLARITY (test code = EDCLARITY) Clear Clear POC URINE GLUCOSE (test code = EDGLUU) Negative Negative POC URINE BILIRUBIN (test code = EDBILIU) Negative Negative POC URINE KETONES (test code = EDKETU) Negative Negative POC URINE SPECIFIC GRAVITY (test code = EDSGU) >= 1.030 1.001-1.035 N POC URINE BLOOD (test code = EDBLDU) Large Negative A POC URINE pH (test code = EDPH) 5.5 5.0-8.0 N POC URINE PROTEIN (test code = EDPROTU) Negative Negative POC URINE UROBILINOGEN (test code = EDURO) 0.2 E.U/dL 0.2-1.0 POC URINE NITRITE (test code = EDNIT) Negative Negative POC URINE LEUKOCYTE ESTERASE (test code = EDLEUK) Negative Negative COMPLETE BLOOD COUNT (CBC)2023-08-22 04:49:00* Test Item Value Reference Range Interpretation Comme nts POC WHITE BLOOD CELL (test code = EDWBC) 9.0 10 3/uL 4.1-10.4 N Testing perf ormed at:[facility] [address] [place] [address] POC RED BLOOD CELL (test code = EDRBC) 4.49 10 6/uL 3.43-5.21 N POC HEMOGLOBIN (test code = EDHGB) 12.6 g/dL 10.9-14.8 N POC HEMATOCRIT (test code = EDHCT) 37.8 % 32.5-46.2 N POC MEAN CELL VOLUME (test code = EDMCV) 84.2 fL 82.5-98.0 N POC MEAN CELL HEMOGLOBIN (test code = EDMCH) 28.1 pg 26.1-32.9 N POC MEAN CELL HGB CONC (test code = EDMCHC) 33.3 g/dL 30.7-34.9 N POC PLATELET COUNT (test code = EDPLT) 336 10 3/uL 136-388 N POC RED CELL DISTRIB WIDTH (test code = EDRDW-CV) 14.1 % 11.8-16.4 N POC LYMPHOCYTES % (test code = EDLYM%) 29.0 % 13.9-44.4 N POC MIXED CELLS % (test code = EDMXD%) 3.9 % 4.7-13.3 L POC NEUTROPHILS % (test code = EDNEUT%) 67.1 % 49.1-76.9 N POC LYMPHOCYTES # (test code = EDLYM#) 2.60 k/mm3 1.0-3.4 N POC MIXED CELLS # (test code = EDMXD#) 0.4 10 3/uL 0.3-1.1 N POC NEUTROPHILS # (test code = EDNEUT#) 6.00 10 3/uL 2.4-7.5 N POC MEAN PLATELET VOLUME (test code = EDMPV) 10.1 fL 7.9-13.3 N POC HCG URINE, [id number] 04:49:00* Test Item Value Reference Range Interpretation Comme nts POC HCG URINE, QUALITATIVE (test code = EDHCGU) Negative Negative Testing performe d at:[address], [place] [address] POC HCG URINE, [id number] 13:25:00* Test Item Value Reference Range Interpretation Comme nts POC HCG URINE, QUALITATIVE (test code = EDHCGU) Negative Negative Testing performe d at:[address], [place] [address] TROPONIN-I [id number] 23:45:00* Test Item Value Reference Range Interpretation Comme [facility] TROPONIN-I RAPID (test code = TROPIRAP) < 0.05 <0.05 Performed by cer tified boomboat operator at [facility]"Point of Care test critical value notification anddocumentation is completed by nursing staff. Negative <0.05 ng/mLPositive >/= 0.05 ng/mL Test results should not be used as absolute evidence or lackof evidence of myocardial infarction and should be evaluatedin the context of all the clinical and laboratory dataavailable. In those instances where the test results do notagree with the clinical evaluation, additional tests shouldbe performed.An elevated troponin alone is not sufficient to diagnosemyocardial infarction. Rather, the patient's clinicalpresentation (history, physical exam) and ECG should be usedin conjunction with troponin in the diagnostic evaluation ofsuspected myocardial infarction. A serial sampling protocolis recommended to facilitate the identification of temporalchanges in troponin levels. UA DIPSTICK [id number] 22:48:00* Test Item Value Reference Range Interpretation Comme nts UA GLUCOSE DIPSTIC POC (test code = GLUUP) NEGATIVE NEGATIVE UA BILIRUBIN DIPSTICK (test code = BILU) NEGATIVE NEGATIVE UA KETONE DIPSTICK POC (test code = KETUP) NEGATIVE NEGATIVE UA SPECIFIC GRAVITY (test code = SGU) 1.025 1.005-1.030 N UA BLOOD DIPSTIC POC (test code = BLUP) 1+ NEGATIVE A Performed by certified boomboat operator at [facility] UA PH DIPSTIC POC (test code = PHUP) 5 5.0-7.0 N UA PROTEIN DIPSTICK POC (test code = DPROUP) NEGATIVE NEGATIVE UA UROBILINIOGEN QUAL (test code = UROQL) NORMAL 0.2-1.0 UA NITRITE DIPSTICK POC (test code = NITUP) NEGATIVE Negative UA LEUKOCYTE ESTERASE W REFLEX (test code = LEUUR) Negative NEGATIVE - CTA CHEST FOR [id number] 22:14:00 [facility] BASIM GUERRERO : 1985 Sex: F Name: BASIM GUERRERO [place] FSED : 1985 Age/S: 38 / F Unit #: [id number] Loc: [place], [place] Phys: Matt Guido MD Acct: [id number] Dis Date: Status: REG ER PHONE #: Exam Date: 06/29/2023 3208 FAX #: Reason: elevated d-dimer EXAMS: CPT CODE: [id number] [place] [id number] LOCATION: [facility] EXAM: CT CHEST PULMONARY EMBOLISM PROTOCOL HISTORY: Chest pain. Elevated D-Dimer.. TECHNIQUE: Thin section axial imaging of the chest from the level of the great vessels through the upper abdomen following the administration of intravenous contrast. Sagittal and coronal MIP reconstruction. No 3-D images. One or more of the following dose reduction techniques were used: Automated exposure control, adjustment of mA and/or kV according to patient size, or iterative reconstruction. COMPARISON: None FINDINGS: Medical Support Devices: None. Pulmonary Arteries: No evidence of pulmonary embolism through the segmental level. Aorta: Normal caliber. No dissection. Additional Findings: Normal heart size. No pericardial effusion. Lungs are well-inflated and clear. Trachea and central bronchi are patent. No pleural effusion or pneumothorax. No mediastinal, hilar, or axillary lymphadenopathy. The visualized thyroid gland is unremarkable. Evaluation in the visualized portion of the upper abdomen is unremarkable. Osseous structures are intact. IMPRESSION: 1. No evidence of pulmonary embolism to the segmental level , or other acute cardiopulmonary disease. PAGE 1 Signed Report (CONTINUED) Name: BASIM GUERRERO [facility] [facility] : 1985 Age/S: 38 / F Unit #: [id number] Loc: [place], [place] Phys: Matt Guido MD Acct: [id number] Dis Date: Status: REG ER PHONE #: Exam Date: 06/29/2023 2209 FAX #: Reason: elevated d- dimer EXAMS: CPT CODE: [id number] [place] [address] (Continued) at 2214 Reported and signed by:Naya Nguyen M.D. CC: Matt Guido MD Technologist:Marci Magallon, RT(R)(CT) CTDI: DLP: Trnscb Date/Time: 06/29/2023 (2213) t.SDR.[email or web address] Orig Print D/T: S: 06/29/2023 (2216) PAGE 2 Signed ReportTROPONIN-I [id number] 21:42:00* Test Item Value Reference Range Interpretation Comme nts TROPONIN-I RAPID (test code = TROPIRAP) < 0.05 <0.05 Performed by cer tified boomboat operator at [facility]"Point of Care test critical value notification anddocumentation is completed by nursing staff. Negative <0.05 ng/mLPositive >/= 0.05 ng/mL Test results should not be used as absolute evidence or lackof evidence of myocardial infarction and should be evaluatedin the context of all the clinical and laboratory dataavailable. In those instances where the test results do notagree with the clinical evaluation, additional tests shouldbe performed.An elevated troponin alone is not sufficient to diagnosemyocardial infarction. Rather, the patient's clinicalpresentation (history, physical exam) and ECG should be usedin conjunction with troponin in the diagnostic evaluation ofsuspected myocardial infarction. A serial sampling protocolis recommended to facilitate the identification of temporalchanges in troponin levels. D-DIMER [id number] 21:37:00* Test Item Value Reference Range Interpretation Comme nts D-DIMER RAPID (test code = DDIMRAP) 694 ng/mLDDU 0-500 [facility] [address]-ig-[address]eml te st, critical value notification anddocumentation is done by nursing staff.Performed by certified boomboat operator at [facility] - XR CHEST 1 [id number] 21:25:00 [facility] : 1985 Sex: F FAX: Matt Guido MD [place]: St: REG Name: BASIM GUERRERO [facility] : 1985 Age/S: 38/F Unit #: [id number] Loc: [place], [place] Phys: Matt Guido MD Acct: [id number] Dis Date: Status: REG ER PHONE #: Exam Date: 06/29/20232115 FAX #: Reason: Chest Pain EXAMS: CPT CODE: [id number] XR CHEST 1 V 97792 EXAM: AP chest LOCATION: H 12 HISTORY: Chest Pain COMPARISON: None. FINDINGS: The lungs are clear. No infiltrate or effusion is seen. The pulmonary vasculature is normal. The heart size is normal. The mediastinal silhouette is unremarkable. The bony thorax is intact. IMPRESSION: No acute disease. at 2125 Reported and signed by: Vazquez Deshpande M.D. CC: Matt Guido MD Technologist: Marci Magallon, RT(R)(CT) Trnscrd Date/Time/By: 06/29/2023 (2124) : By: EleFC Orig Print D/T: S: 06/29/2023 (2128) PAGE 1 Signed ReportBASIC METABOLIC ABG 2023-06-29 21:21:00* Test Item Value Reference Range Interpretation Comme nts SODIUM (test code = NA/ABG) 140 mmol/L 134-147 N POTASSIUM (test code = K/ABG) 3.5 mmol/L 3.4-5.0 N CHLORIDE (test code = CL/ABG) 106 mmol/L 100-108 N CREATININE ABG (test code = CREAABG) 0.6 mg/dL 0.6-1.0 N POC IONIZED CALCIUM (test co de = POCCA) 1.14 MMOL/L 1.12-1.32 N POC GLUCOSE (test code = POCGLU) 89 MG/DL 70-110 N COMPLETE BLOOD COUNT (CBC)2023-06-29 21:13:00* Test Item Value Reference Range Interpretation Comme nts POC WHITE BLOOD CELL (test code = EDWBC) 11.0 10 3/uL 4.1-10.4 H Testing perf ormed at:[facility] [address] [place] [address] POC RED BLOOD CELL (test code = EDRBC) 4.84 10 6/uL 3.43-5.21 N POC HEMOGLOBIN (test code = EDHGB) 13.5 g/dL 10.9-14.8 N POC HEMATOCRIT (test code = EDHCT) 40.4 % 32.5-46.2 N POC MEAN CELL VOLUME (test code = EDMCV) 83.5 fL 82.5-98.0 N POC MEAN CELL HEMOGLOBIN (test code = EDMCH) 27.9 pg 26.1-32.9 N POC MEAN CELL HGB CONC (test code = EDMCHC) 33.4 g/dL 30.7-34.9 N POC PLATELET COUNT (test code = EDPLT) 325 10 3/uL 136-388 N POC RED CELL DISTRIB WIDTH (test code = EDRDW-CV) 14.9 % 11.8-16.4 N POC LYMPHOCYTES % (test code = EDLYM%) 30.9 % 13.9-44.4 N POC MIXED CELLS % (test code = EDMXD%) 4.7 % 4.7-13.3 N POC NEUTROPHILS % (test code = EDNEUT%) 64.4 % 49.1-76.9 N POC LYMPHOCYTES # (test code = EDLYM#) 3.40 k/mm3 1.0-3.4 N POC MIXED CELLS # (test code = EDMXD#) 0.5 10 3/uL 0.3-1.1 N POC NEUTROPHILS # (test code = EDNEUT#) 7.10 10 3/uL 2.4-7.5 N POC MEAN PLATELET VOLUME (test code = EDMPV) 10.0 fL 7.9-13.3 N
[2024-11-15] MEDS ORDERED: IBUPROFEN 400 MG TAB ONE (17:17)
--- NOTE | 2024-11-15 17:41 | EDPHYS ---
Physician Documentation [facility] Name: Kaylin Grimaldo Age: 39 yrs Sex: Female : 1985 Arrival Date: 11/15/2024 Time: 16:29 Bed 11 Private MD: MARÍA Physician Scott Christian HPI: 11/15 17:04 This 39 yrs old Female presents to ER via Wheelchair with complaints of Foot lu Pain, Right. 17:04 The patient presents with decreased range of motion, pain, that is acute. The lu complaints affect the right foot. 17:05 The patient presents with decreased range of motion, pain, swelling. The complaints lu affect the right ankle. Onset: The symptoms/episode began/occurred just prior to arrival. Context: resulted from a mis-step by the patient. Associated signs and symptoms: The patient has no apparent associated signs or symptoms. Modifying factors: The symptoms are alleviated by elevation of extremity, the symptoms are aggravated by weight bearing, movement. 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 - Infectious Disease History:: Denies. - Social history:: Smoking status: Patient denies any tobacco usage or history of. - Family history:: not pertinent. ROS: 17:05 Constitutional: Negative for fever, chills, and weight loss, Eyes: Negative for injury, lu pain, redness, and discharge, ENT: Negative for injury, pain, and discharge, Neck: Negative for injury, pain, and swelling, Cardiovascular: Negative for chest pain, palpitations, and edema, Respiratory: Negative for shortness of breath, cough, wheezing, and pleuritic chest pain, Abdomen/GI: Negative for abdominal pain, nausea, vomiting, diarrhea, and constipation, Back: Negative for injury and pain, : Negative for injury, bleeding, discharge, and swelling, Skin: Negative for injury, rash, and discoloration, Neuro: Negative for headache, weakness, numbness, tingling, and seizure, Psych: Negative for depression, anxiety, suicide ideation, homicidal ideation, and hallucinations, Allergy/Immunology: Negative for hives, rash, and allergies, Endocrine: Negative for neck swelling, polydipsia, polyuria, polyphagia, and marked weight changes, Hematologic/Lymphatic: Negative for swollen nodes, abnormal bleeding, and unusual bruising, 17:05 MS/extremity: Positive for injury or acute deformity, contusion, decreased range of motion, pain, swelling, tenderness, of the right ankle, lateral aspect of right foot, anterior aspect of right ankle and dorsum of right foot, Exam: 17:05 Constitutional: This is a well developed, well nourished patient who is awake, alert, lu and in no acute distress. Head/Face: Normocephalic, atraumatic. Eyes: Pupils equal round and reactive to light, extra-ocular motions intact. Lids and lashes normal. Conjunctiva and sclera are non-icteric and not injected. Cornea within normal limits. Periorbital areas with no swelling, redness, or edema. ENT: Nares patent. No nasal discharge, no septal abnormalities noted. Tympanic membranes are normal and external auditory canals are clear. Oropharynx with no redness, swelling, or masses, exudates, or evidence of obstruction, uvula midline. Mucous membranes moist. Neck: Trachea midline, no thyromegaly or masses palpated, and no cervical lymphadenopathy. Supple, full range of motion without nuchal rigidity, or vertebral point tenderness. No Meningismus. Chest/axilla: Normal chest wall appearance and motion. Nontender with no deformity. No lesions are appreciated. Cardiovascular: Regular rate and rhythm with a normal S1 and S2. No gallops, murmurs, or rubs. Normal PMI, no JVD. No pulse deficits. Respiratory: Lungs have equal breath sounds bilaterally, clear to auscultation and percussion. No rales, rhonchi or wheezes noted. No increased work of breathing, no retractions or nasal flaring. Abdomen/GI: Soft, non-tender, with normal bowel sounds. No distension or tympany. No guarding or rebound. No evidence of tenderness throughout. Back: No spinal tenderness. No costovertebral tenderness. Full range of motion. Skin: Warm, dry with normal turgor. Normal color with no rashes, no lesions, and no evidence of cellulitis. Neuro: Awake and alert, GCS 15, oriented to person, place, time, and situation. Cranial nerves II-XII grossly intact. Motor strength 5/5 in all extremities. Sensory grossly intact. Cerebellar exam normal. Normal gait. Psych: Awake, alert, with orientation to person, place and time. Behavior, mood, and affect are within normal limits. 17:05 Musculoskeletal/extremity: ROM: limited active range of motion due to pain, limited passive range of motion due to pain, Pulses: are normal with no appreciated deficits, Sensation intact. Compartment Syndrome exam of affected extremity: is normal. Weight bearing: is unable to bear weight, Tendon exam: specific tendon testing normal through active and passive range of motion DVT Exam: negative Homans' sign noted on exam, no appreciated bluish discoloration, no erythema, no increased warmth, pain, swelling, tenderness, Vital Signs: 16:40 BP 157 / 98; Pulse 87; Resp 18 S; Temp 97.8(TE); Pulse Ox 98% on R/A; Weight 108.86 kg aa5 (R); Height 5 ft. 7 in. (R); Pain 8/10; 16:40 Body Mass Index 37.59 (108.86 kg, 170.18 cm) aa5 16:40 Pain Scale: Adult aa5 MDM: 16:33 Medical Screening Exam initiated [facility] 17:09 Differential diagnosis: fracture, sprain, arthritis, gout, cellulitis. Data reviewed: [facility] vital signs, nurses notes, radiologic studies, plain films. Consideration of Admission/Observation Escalation of care including admission/observation considered. I considered the following discharge prescriptions or medication management in the emergency department Medications were administered in the Emergency Department. See MAR. Independent interpretation of the following test(s) in the Emergency Department X-Ray: My interpretation is RIGHT FOOT/ANKLE. Historians other than the Patient: PT WELL INFORMED. Care significantly affected by the following chronic conditions: Hypertension, CPTSD, POTS. 11/15 16:34 Order name: Foot Right 3 View XRAY [facility] 11/15 16:34 Order name: Ankle Right 3 View XRAY [facility] 11/15 17:04 Order name: Ice pack; Complete Time: 17:21 [facility] 11/15 17:04 Order name: Walking boot: PND X RAYS; Complete Time: 18:08 [facility] Administered Medications: 17:24 Drug: Ibuprofen PO 800 mg PO once Route: PO; aa5 18:08 Follow up: Response: No adverse reaction aa5 Disposition Summary: 11/15/24 17:40 Discharge Ordered Notes: Location: Home [facility] Problem: new lu Symptoms: have improved lu Condition: Stable lu Diagnosis - Sprain of tarsal ligament of right foot lu - Sprain of foot lu - Sprain of calcaneofibular ligament of right ankle lu - Sprain of ankle lu Followup: lu - With: Private Physician - When: 2 - 3 days - Reason: Recheck today's complaints, Continuance of care, Re-evaluation by your physician Followup: lu - With: Julio Cesar Stark MD - When: 2 - 3 days - Reason: Recheck today's complaints, Re-evaluation by your physician Discharge Instructions: - Discharge Summary Sheet lu - Ankle Sprain lu - Foot Sprain lu - RICE Therapy for Routine Care of Injuries lu - RICE Therapy for Routine Care of Injuries, Smim-xa-Vxhc lu - Ankle Sprain, Uzey-xl-Klrr lu - Ankle Pain lu - Foot Pain lu Forms: - Medication Reconciliation Form lu - Antibiotic Education lu - Prescription Opioid Use lu - Patient Portal Instructions [facility] - Leadership Thank You Letter [facility] Prescriptions: - diclofenac sodium 50 mg Oral tablet, delayed release (enteric coated) - take 1 tablet ORAL route 3 times per day; 21 tablet; Refills: 0, Product lu Selection Permitted Signatures: Dispatcher [employer] Scott Rosado MD MD cha Calderon, Audri, RN RN aa5
--- NOTE | 2024-11-15 17:41 | ER ---
Nurse's Notes [facility] Name: Kaylin Grimaldo Age: 39 yrs Sex: Female : 1985 Arrival Date: 11/15/2024 Time: 16:29 Bed 11 Private MD: Diagnosis: Sprain of tarsal ligament of right foot;Sprain of foot;Sprain of calcaneofibular ligament of right ankle;Sprain of ankle Presentation: 11/15 16:40 Chief complaint: Patient states: right ankle pain, pt states "I slipped and twisted my aa5 ankle and fell". Coronavirus screen: At this time, the client does not indicate any symptoms associated with coronavirus-19. Ebola Screen: Patient denies travel to an Ebola-affected area in the 21 days before illness onset. Initial Sepsis Screen: Does the patient meet any 2 criteria? No. Patient's initial sepsis screen is negative. Does the patient have a suspected source of infection? No. Patient's initial sepsis screen is negative. Risk Assessment: Do you want to hurt yourself or someone else? Patient reports no desire to harm self or others. Onset of symptoms was November 15, 2024. 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 - Infectious Disease History:: Denies. - Social history:: Smoking status: Patient denies any tobacco usage or history of. - Family history:: not pertinent. Screenin:40 [facility] ED Fall Risk Assessment (Adult) History of falling in the last 3 months, aa5 including since admission Yes- single mechanical fall (1 pt) Confusion or Disorientation No (0 pts) Intoxicated or Sedated No (0 pts) Impaired Gait Yes (1 pt) Mobility Assist Device Used No (0 pt) Altered Elimination No (0 pt) Score/Fall Risk Level 0 - 2 = Low Risk Oriented to surroundings, Maintained a safe environment, Educated pt \\T\\ family on fall prevention, incl call for assistance when getting out of bed. Abuse screen: Denies threats or abuse. Nutritional screening: No deficits noted. Tuberculosis screening: No symptoms or risk factors identified. Assessment: 16:40 General: Appears uncomfortable, Behavior is calm, cooperative. Pain: Complains of pain aa5 in dorsum of right foot and lateral aspect of right foot and right ankle Pain currently is 8 out of 10 on a pain scale. Quality of pain is described as throbbing, Is continuous. Neuro: Level of Consciousness is awake, alert, obeys commands, Oriented to person, place, time, situation. Cardiovascular: Patient's skin is warm and dry. Respiratory: Airway is patent Respiratory effort is even, unlabored, Respiratory pattern is regular, symmetrical. GI: No signs and/or symptoms were reported involving the gastrointestinal system. : No signs and/or symptoms were reported regarding the genitourinary system. EENT: No signs and/or symptoms were reported regarding the EENT system. Derm: Skin is pink, warm \\T\\ dry. Musculoskeletal: Reports pain in dorsum of right foot and lateral aspect of right foot and right ankle. 17:24 Reassessment: Patient is alert, oriented x 3, equal unlabored respirations, skin aa5 warm/dry/pink. Ice pack applied to right ankle/right foot . 18:05 Reassessment: Patient is alert, oriented x 3, equal unlabored respirations, skin aa5 warm/dry/pink. Vital Signs: 16:40 BP 157 / 98; Pulse 87; Resp 18 S; Temp 97.8(TE); Pulse Ox 98% on R/A; Weight 108.86 kg aa5 (R); Height 5 ft. 7 in. (R); Pain 8/10; 16:40 Body Mass Index 37.59 (108.86 kg, 170.18 cm) aa5 16:40 Pain Scale: Adult aa5 ED Course: 16:31 Patient arrived in ED. mr 16:33 Scott Christian MD is Attending Physician. [facility] 16:39 Arm band placed on. aa5 16:39 Patient has correct armband on for positive identification. Bed in low position. Call aa5 light in reach. Side rails up X 1. 16:41 Triage completed. aa5 17:24 Nusrat Gay, TIMUR is Primary Nurse. aa5 17:40 Julio Cesar Stark MD is Referral Physician. [facility] 17:49 Foot Right 3 View XRAY In Process Unspecified. EDMS 17:49 Ankle Right 3 View XRAY In Process Unspecified. EDMS 18:05 Walking boot applied to right foot, pt tolerated well. aa5 18:08 No provider procedures requiring assistance completed. Patient did not have IV access aa5 during this emergency room visit. Administered Medications: 17:24 Drug: Ibuprofen PO 800 mg PO once Route: PO; aa5 18:08 Follow up: Response: No adverse reaction aa5 Medication: 18:05 VIS not applicable for this client. aa5 Outcome: 17:40 Discharge ordered by MD. [facility] 18:05 Discharged to home via wheelchair, aa5 18:05 Condition: stable 18:05 Discharge instructions given to patient, Instructed on discharge instructions, follow up and referral plans. medication usage, Demonstrated understanding of instructions, follow-up care, medications, Prescriptions given X 1, 18:08 Patient left the ED. aa5 Signatures: Dispatcher [employer] Scott Rosado MD MD cha Rivera, Mary, Reg Reg Nusrat Worthington, RN RN aa5
--- NOTE | 2024-11-15 18:00 | RAD REPORT ---
EXAM: Foot Right 3 View HISTORY: PAIN COMPARISON: None FINDINGS: Bones: No acute fracture identified. Alignment:No significant malalignment. Degenerative changes:Calcaneal spurs. Other: n/a IMPRESSION: No evidence of acute osseous abnormality involving the imaged foot.
--- NOTE | 2024-11-15 18:01 | RAD REPORT ---
EXAMINATION: Ankle Right 3 View CLINICAL INDICATION: Female, 39 years old. PAIN COMPARISON: No prior exam. FINDINGS: No acute fracture. No malalignment/dislocation. Calcaneal spurs. Other: n/a IMPRESSION: No acute osseous abnormality.
[2024-11-17 02:23] VITALS: BP 157/98; TEMP 97.8; O2SAT 98
== END 2024-11-15 18:08 | disposition home or self-care (01) ==
LOC: ER 16:29
DX: S93.611A Sprain of tarsal ligament of right foot, initial encounter (principal); S93.411A Sprain of calcaneofibular ligament of right ankle, initial encounter; I10 Essential (primary) hypertension; G90.A Postural orthostatic tachycardia syndrome [POTS]; F43.10 Post-traumatic stress disorder, unspecified; W01.0XXA Fall on same level from slipping, tripping and stumbling without subsequent striking against object, initial encounter; Y93.9 Activity, unspecified; Y92.9 Unspecified place or not applicable; Z88.1 Allergy status to other antibiotic agents
CPT/HCPCS: 99283

== ENCOUNTER 2024-12-23 09:43 | Emergency (ER) | payer SELFPAY ==
--- OUTSIDE RECORDS SUMMARY | 2024-12-23 09:48 | XMS REPORT | Continuity of Care Document ---
Author Name Unknown Address [address] [facility] [address] [place] [address] [facility] Address [address] [facility]. [address] [place] [address] Care Team Providers Care Ambulance Mechanic Name Role Phone Pcp, Patient Does Not Have A Primary Care Physic quintin Susana Hawk Attending Clinician Unavail able Ortho, Vls-Occup Therapy-Walkin Attending Clinic quintin Unavailable Chris Reed MD Attending Clinician [phone] CHRIS REED Attending Clinician Unavailable FRANKLIN WESTFALL Attending Clinician Unavailable FRANKLIN WESTFALL Attending Clinician Unavailable Franklin Mathias Attending Clinician [phone] Crystal Hernandez Attending Clinician Unavailable Therese Cortez Attending Clinician Unavailable Ssuana Hawk Attending Clinician [phone] Marquis Pak Attending Clinician Unavailab Dali Pugh Attending Clinician Unavailable Verónica Guido Attending Clinician Unavailable Ilana Miller Attending Clinician UnavailMatt Harris Attending Clinician Unavailable ISMAEL CALHOUN Attending Clinician Unavailable Only, Angel [facility] Test Attending Clinician Unavailtasha pulliam Unknown, Attending Attending Clinician Unavailab Ismael Hwang MD Attending Clinician [phone] Genie Cisneros Attending Clinician Unavailable Genie Cisneros Attending Clinician [phone] Ilana Miller Attending Clinician [phone] Linnette Atkinson Attending Clinician [phone] FRANKLIN WESTFALL Admitting Clinician Unavailable Physician, No Primary or Family Admitting Clinic quintin Unavailable Marquis Pak Admitting Clinician Unavailab jose Payers Payer Name Policy Type Policy Number Effective Date Expirati on Date Source [facility] MEDICAID [id number] 2011 00:00:00 Problems Condition Name Condition Details Condition Category Status Onset Date Resolution Date Last Treatment Date Treating Clinician Comments Source Left hand pain Left hand pain Disease Active 2023-11 016 00:00: 00 [facility] Swelling of left hand Swelling of left hand Disease Active 2023-11 016 00:00: 00 [facility] Impaired dexterity Impaired dexterity Disease Active 2023-11 0-16 00:00: 00 [facility] Finger stiffness, left Finger stiffness, left Disease Active 2023-11 016 00:00: 00 [facility] No known active problems No known active problems Disease [facility] Syncope and collapse Syncope and collapse Problem [facility] [phone] Essential hypertensi on Problem [facility] Allergies, Adverse Reactions, Alerts Allergy Name Allergy Type Status Severity Reaction(s) Onset Date Inactive Date Treating Clinician Comments Source metronid azole DA Active SV ANAPHALACTIC SHOCK 2023-11 00:00: 00 [facility] lamotrig ine DA Active U ANAPHYLLAXIS 2023-11 00:00: 00 [facility] metronid azole DA Active SV ANAPHALACTIC SHOCK 04-03 00:00: 00 [facility] lamotrig ine DA Active U ANAPHYLLAXIS 6-03 00:00: 00 [facility] metronid azole DA Active SV ANAPHALACTIC SHOCK 2022-11 0 00:00: 00 [facility] lamotrig ine DA Active U ANAPHYLLAXIS 2022-11 0 00:00: 00 [facility] metronid azole DA Active SV ANAPHALACTIC SHOCK 8 00:00: 00 [facility] lamotrig ine DA Active U ANAPHYLLAXIS 06-29 00:00: 00 [facility] lamotrig ine DA Active U ANAPHYLLAXIS 515 00:00: 00 [facility] lamotrig ine drug allergy Active 11-21 00:00: 00 [facility] metronid azole drug allergy Active 11-21 00:00: 00 [facility] METRONID AZOLE HCL DRUG INGREDI Active High Anaphylaxis 02-20 00:00: [address] [facility] LAMOTRIG INE DRUG INGREDI Active High Anaphylaxis 02-20 00:00: [address] [facility] Metronid azole Hcl Propensi ty to adverse reaction s to drug Active Anaphylaxis 02-20 00:00: [address] [facility] Lamotrig ine Propensi ty to adverse reaction s Active Anaphylaxis 02-20 00:00: [address] [facility] metronid azole DA Active SV ANAPHALACTIC SHOCK 06-30 00:00: 00 [facility] lamotrig ine lamotrig ine Active Unknown [facility] metronid azole metronid azole Active Unknown [facility] Family History Family Member Diagnosis Comments Start Date Stop Date Sour e Father alcoholism (Cause Of ) 2015-11-21 00:00:00 2015-11-21 00:00:00 [facility] Mother hypertension 2015-11-21 00:00:00 2015-11-21 00:00:00 [facility] Mother Alive and well 2015-11-21 00:00:00 2015-11-21 00:00:00 [facility] Mother Thyroid disorder 2015-11-21 00:00:00 2015-11-21 00:00:00 [facility] Social History Social Habit Start Date Stop Date Quantity Comments Source Health-related Behavior 2024-03-29 00:00:00 [facility] Alcohol intake 2023-07-12 00:00:00 [facility] Tobacco use and exposure 2023-07-12 00:00:00 : No Details Available Quantity Details - : No Details Available [facility] Sexual orientation U [facility] Sex Assigned At [facility] History of Tobacco Use [facility] Alcoholic beverage intake 2024-08-16 00:00:00 2024-08-16 00:00:00 [facility] History of Social function 2024-08-16 00:00:00 2024-08-16 00:00:00 [facility] Exposure to SARS-CoV-2 (event) 2022-06-16 00:00:00 2022-06-26 15:37:00 Not sure [facility] Smoking Status Start Date Stop Date Source Never smoked tobacco [facility] Unknown if ever smoked [facility] Medications Ordered Medication Name Filled Medication Name Start Date Stop Date Current Medication? Ordering Clinician Indication Dosage Frequency Signature (SIG) Comments Components Source lisinopriL 40 mg tablet 2023-11 14:48: 05 Yes 40mg Take 1 tablet by mouth in the morning. [facility] FLUoxetine (PROZAC) 20 mg capsule 2023-11 14:48: 05 Yes 20mg Take 1 capsule by mouth in the morning. [facility] FEXOFENADIN E HCL (LESLIE ORAL) 2023-11 12:37: 28 Yes Take by mouth. [facility] diphenhydrA MINE (BENADRYL) 25 mg capsule 2023-11 12:37: 28 Yes 25mg Take 1 capsule by mouth every 6 (six) hours as needed. [facility] Ibuprofen (ADVIL LIQUI-GEL) 200 mg Cap 2023-11 12:37: 28 Yes Take by mouth. [facility] acetaminoph en (TYLENOL) 325 mg tablet 2023-11 12:37: 28 Yes Take by mouth every 6 (six) hours as needed. [facility] HYDROcodone -acetaminop hen 5-325 mg tablet 2023-11 00:00: 00 08-16 04:59 :00 No [id number] 1{tbl} Take 1-2 tablets by mouth every 6 (six) hours as needed for Pain (scale 7-10) for up to 7 days. Indication s: acute pain [facility] lisinopril 10 mg tablet 2022-11 00:00: 00 No 1{table t} Q1D take 1 tablet by oral route every day [Pat Resp = 60 pct;] Group B Group B Group B [facility] fluoxetine 10 mg capsule 2022-11 00:00: 00 No 1{capsu le} Q1D take 1 capsule by oral route every day [Pat Resp = 60 pct;] Group B Group B [facility] Victoza 3-Luis 0.6 mg/0.1 mL (18 mg/3 mL) subcutaneou s pen injector 2022-11 00:00: 00 No inject (1.2MG) by subcutaneo us route every day . [Pat Resp = 60 pct;] Group B Group B Group B [facility] Victoza 18 MG/3ML Victoza 18 MG/3ML [...] [Pat Resp = 60 pct;] Group B [facility] lisinopril 10 mg tablet 07-15 15:27: 00 07-15 00:00 :00 No 1{table t} Q1D take 1 tablet by oral route every day [Pat Resp = 60 pct;] Group B [facility] Ozempic 0.25 mg or 0.5 mg (2 mg/3 mL) subcutaneou s pen injector 07-15 00:00: 00 No .5 Q1W inject (0.5MG) by subcutaneo us route every week on the same day of each week [Pat Resp = 60 pct;] Group B [facility] lisinopril 10 mg tablet 07-15 00:00: 00 No 1{table t} Q1D take 1 tablet by oral route every day [Pat Resp = 60 pct;] Group B Group B [facility] s fluoxetine 10 mg capsule 07-15 00:00: 00 No 1{capsu le} Q1D take 1 capsule by oral route every day [Pat Resp = 60 pct;] Group B [facility] metoprolol succinate ER 25 mg tablet,exte nded release 24 hr 07-12 11:19: 00 07-12 00:00 :00 No 1{table t} Q1D take 1 tablet by oral route every day [Pat Resp = 60 pct;] Group B [facility] buspirone 5 mg tablet 06-28 10:59: 00 No 1{table t} Q12H take 1 tablet by oral route 2 times every day [Pat Resp = 60 pct;] Group B [facility] metoprolol succinate ER 25 mg tablet,exte nded release 24 hr 06-28 10:58: 00 No 1{table t} Q1D take 1 tablet by oral route every day [Pat Resp = 60 pct;] Group B [facility] lisinopril 10 mg tablet 06-28 10:58: 00 No 1{table t} Q1D take 1 tablet by oral route every day [Pat Resp = 60 pct;] Group B [facility] gabapentin 100 mg capsule 06-28 10:56: 00 06-28 00:00 :00 No 1{capsu le} Q8H take 1 Capsule by oral route 3 times every day [No discount] [facility] Lexapro 10 mg tablet 06-28 10:56: 00 06-28 00:00 :00 No 1{table t} Q1D take 1 tablet by oral route every day [No discount] [facility] predniSONE (DELTASONE) 20 mg tablet 03-09 00:00: 00 Yes 20mg daily x 5 days, then 20mg every other day x 5 doses [facility] predniSONE (DELTASONE) 20 mg tablet 03-02 00:00: 00 Yes 40mg Take 2 Tabs by mouth daily. [facility] triamcinolo ne acetonide (KENALOG) 0.1 % ointment 03-02 00:00: 00 Yes Apply to area(s) 2 (two) times daily. [facility] FEXOFENADIN E HCL (LESLIE ORAL) 02-22 14:53: 33 Yes Take by mouth. [facility] acetaminoph en (TYLENOL) 325 mg tablet 02-20 08:55: 48 Yes Take by mouth every 6 (six) hours as needed. [facility] diphenhydrA MINE (BENADRYL) 25 mg capsule 02-20 08:55: 47 Yes 25mg Take 25 mg by mouth every 6 (six) hours as needed. [facility] Ibuprofen (ADVIL LIQUI-GEL) 200 mg Cap 02-20 08:55: 47 Yes Take by mouth. [facility] triamcinolo ne acetonide (TRIDERM) 0.1 % cream 02-20 00:00: 00 Yes Apply to area(s) 2 (two) times daily. [facility] hydrOXYzine (ATARAX) 10 mg tablet 02-20 00:00: 00 Yes 10mg Take 1 Tab by mouth every 8 (eight) hours as needed for Itching. [facility] Lisinopril 40 MG Lisinopril 40 MG No 1{table t} QD Lisinopril 40 MG Vital Signs Vital Name Observation Time Observation Value Comments S ource Systolic blood pressure 2024-08-16 19:48:00 164 mm[Hg] [facility] Diastolic blood pressure 2024-08-16 19:48:00 108 mm[Hg] [facility] Heart rate 2024-08-16 19:48:00 75 /min [facility] Body height 2024-08-16 19:48:00 170.2 cm [facility] Body weight 2024-08-16 19:48:00 107.956 kg [facility] BMI 2024-08-16 19:48:00 37.28 kg/m2 [facility] Oxygen saturation in Arterial blood by Pulse oximetry 2024-08-16 19:48:00 98 /min [facility] Systolic blood pressure 2024-08-08 19:50:04 146 mm[Hg] [facility] Diastolic blood pressure 2024-08-08 19:50:04 94 mm[Hg] [facility] Heart rate 2024-08-08 19:50:04 73 /min [facility] Respiratory rate 2024-08-08 19:50:04 18 /min [facility] Oxygen saturation in Arterial blood by Pulse oximetry 2024-08-08 19:50:04 97 /min [facility] Body temperature 2024-08-08 17:37:00 36.61 Luz Marina [facility] Body height 2024-08-08 17:34:00 170.2 cm [facility] Body weight 2024-08-08 17:34:00 104.327 kg [facility] BMI 2024-08-08 17:34:00 36.02 kg/m2 [facility] height 2024-05-29 09:30:00 67 [in_i] [facility] weight-kg 2024-05-29 09:30:00 105.69 kg [facility] bmi 2024-05-29 09:30:00 36.49 kg/m2 [facility] temperature 2024-05-29 09:30:00 97.9 [degF] [facility] heart rate 2024-05-29 09:30:00 76 /min [facility] blood pressure systolic 2024-05-29 09:30:00 166 mm[Hg] [facility] blood pressure diastolic 2024-05-29 09:30:00 114 mm[Hg] [facility] Body height 2023-07-12 11:26:00 170.18 cm [facility] Body Weight 2023-07-12 11:26:00 109.316 kg [facility] Intravascular Systolic 2023-07-12 11:26:00 125 mm[Hg] [facility] Intravascular Diastolic 2023-07-12 11:26:00 74 mm[Hg] [facility] Heart Rate 2023-07-12 11:26:00 76 /min [facility] Body Temperature 2023-07-12 11:26:00 36.67 Luz Marina [facility] Respiratory rate 2023-07-12 11:26:00 18 /min [facility] Body mass index 2023-07-12 11:26:00 37.75 kg/m2 [facility] SaO2 % BldA PulseOx 2023-07-12 11:26:00 98 /min [facility] Body height 2023-06-28 10:59:00 170.18 cm [facility] Body Weight 2023-06-28 10:59:00 108.409 kg [facility] Intravascular Systolic 2023-06-28 10:59:00 154 mm[Hg] [facility] Intravascular Diastolic 2023-06-28 10:59:00 88 mm[Hg] [facility] Heart Rate 2023-06-28 10:59:00 62 /min [facility] Body Temperature 2023-06-28 10:59:00 36.56 Luz Marina [facility] Respiratory rate 2023-06-28 10:59:00 18 /min [facility] Body mass index 2023-06-28 10:59:00 37.43 kg/m2 [facility] SaO2 % BldA PulseOx 2023-06-28 10:59:00 99 /min [facility] Procedures Procedure Date / Time Performed Performing Clinician Source POCT TEST 2024-08-08 19:02:00 Reina Westfall [facility] XR HAND 3+ VW LEFT 2024-08-08 18:05:00 Franklin Westfall [facility] Established Patient Office Visit-Level Four 2023-09-20 00:00:00 [facility] Established Patient Office Visit-Level Three 2023-08-09 00:00:00 [facility] Individual & Fam psychotherapy (60 min.) 2023-07-26 00:00:00 [facility] ASSAY OF FREE THYROXINE 4 2023-07-12 00:00:00 [facility] Thyroid Stimulating Hormone (TSH) 2023-07-12 00:00:00 [facility] Comprehensive Metabolic Panel 2023-07-12 00:00:00 [facility] Lipid Panel 2023-07-12 00:00:00 [facility] Hepatitis Panel - Acute 2023-07-12 00:00:00 [facility] Hemoglobin A1C 2023-07-12 00:00:00 [facility] Complete Blood Count (CBC) 2023-07-12 00:00:00 [facility] Syphilis Test, qualitative 2023-07-12 00:00:00 [facility] HIV-1 antigen(s), HIV-1 and HIV-2 antibodies, single result 2023-07-12 00:00:00 [facility] Established Patient Office Visit-Level [...] Wellness PSYTX PT&/FAMILY 60 MINUTES 2015-12-31 00:00:00 [facility] New Patient Office Visit-Level Three 2015-11-21 00:00:00 [facility] Complete Blood Count (CBC) 2015-11-21 00:00:00 [facility] Comprehensive Metabolic Panel 2015-11-21 00:00:00 [facility] ASSAY OF FREE THYROXINE 4 2015-11-21 00:00:00 [facility] Thyroxine, total 2015-11-21 00:00:00 [facility] Thyroid Stimulating Hormone (TSH) 2015-11-21 00:00:00 [facility] Thyroid Hormone (T3&T4) uptake or binding ratio 2015-11-21 00:00:00 [facility] Limited Oral Evaluation Problem Focused 2015-09-06 00:00:00 [facility] Encounters Start Date/Time End Date/Time Encounter Type Admission Type Attending Clinicians Care Facility Care Department Encounter ID Source 2024-07-24 10:08:02 Outpatient Susana Hawk [facility] [id number] Natalie fuentes 2024-05-29 09:05:01 Outpatient Susana Hawk [facility] [id number] [facility] 2024-08-24 00:00:00 2024-08-24 00:00:00 (TEL) [facility] [id number] Natalie fuentes 2024-08-16 15:00:00 2024-08-16 15:30:00 Ancillary Visit Ortho, Vls-Occup Therapy-Chris Mccollum Vls-Occup Therapy-[facility] [id number] [facility] 2024-08-16 14:15:00 2024-08-16 15:03:[address] C[address] [facility] [id number] [facility] 2024-08-16 14:15:00 2024-08-16 15:03:22 Office Visit Chris Reed [facility] [id number] [facility] 2024-08-16 15:00:00 2024-08-16 15:00:[address] [facility] [id number] [facility] 2024-08-08 12:37:00 2024-08-08 14:51:00 Emergency X FRANKLIN WESTFALL [facility] ERT [id number] [facility] 2024-08-08 12:37:00 2024-08-08 14:51:00 Emergency Franklin Westfall [facility] [id number] [facility] 2024-08-07 10:09:00 2024-08-07 11:21:00 Emergency EM Crystal Hernandez [facility] [id number] [address] [facility] 2024-07-24 00:00:00 2024-07-24 00:00:00 (TEL) CLS CLS [id number] [facility] 2024-07-24 00:00:00 2024-07-24 00:00:00 (TEL) CLS CLS [id number] [facility] 2024-05-29 00:00:00 2024-05-29 00:00:00 Office Visit- Est Pt.- Level 4 CLS CLS [id number] [facility] ties 2024-04-03 22:27:00 2024-04-04 00:15:00 Emergency EM Therese Cortez [facility] [id number] [address] [facility] 2024-03-29 10:32:00 2024-03-29 10:32:00 Outpatient Susana Hawk [facility] CHW [id number] [facility] 2024-03-29 10:32:00 2024-03-29 10:32:00 Outpatient Susana Hawk Ramez [id number] [facility] 2023-09-22 14:19:00 2023-09-22 14:19:00 [facility] [id number] [facility] 2023-09-22 14:19:00 2023-09-22 14:19:00 Outpatient HawkSusana Harper CHW [id number] [facility] 2023-09-20 09:30:00 2023-09-20 09:30:00 Outpatient [facility] Services CHW CHW [id number] [facility] 2023-09-20 09:30:00 2023-09-20 09:30:00 Establishshasha d Patient Office Visit-[facility] Susana Hawk W [id number] [facility] 2023-08-23 13:13:00 2023-08-24 15:25:00 Inpatient Marquis Yu [facility] MED [id number] 04 [facility] 2023-08-22 04:07:00 2023-08-22 09:55:00 Emergency EM Zaid Dali [facility] [id number] 22 [facility] 2023-08-20 09:20:00 2023-08-20 09:20:00 Outpatient Verónica Guido CHW CHW [id number] [facility] 2023-08-20 09:20:00 2023-08-20 09:20:00 Outpatient W [id number] [facility] 2023-08-19 17:59:00 2023-08-19 17:59:00 Outpatient Hawk Susana Harper W CHW [id number] [facility] 2023-08-09 11:30:00 2023-08-09 11:30:00 Outpatient [facility] Services CHW CHW [id number] [facility] 2023-08-09 11:30:00 2023-08-09 11:30:00 Jessie dowell Patient Office Visit-Aimee HawkSusana Harper W [id number] [facility] 2023-07-26 09:00:00 2023-07-26 09:00:00 Outpatient Ilana Miller W W [id number] [facility] 2023-07-26 09:00:00 2023-07-26 09:00:00 Individual & Fam psychother apy (60 min.) W [id number] [facility] 2023-07-23 09:36:00 2023-07-23 09:36:00 [facility] [id number] 2023-07-22 14:07:00 2023-07-22 14:07:00 Outpatient HawkSusana Harper [facility] [id number] [facility] 2023-07-22 14:07:00 2023-07-22 14:07:00 Outpatient Susana Hawk [facility] [id number] [facility] 2023-07-21 16:03:00 2023-07-21 16:03:00 Outpatient Sus[facility] Hawk [facility] [id number] [facility] 2023-07-19 11:46:00 2023-07-19 11:46:00 Outpatient Susana Hawk [facility] [id number] [facility] 2023-07-19 11:46:00 2023-07-19 11:46:00 Outpatient Susana Hawk [facility] [id number] [facility] 2023-07-15 15:26:00 2023-07-15 15:26:00 Outpatient Sus[facility] Hawk [facility] [id number] [facility] 2023-07-15 15:26:00 2023-07-15 15:26:00 Outpatient Susana Hawk W [id number] [facility] 2023-07-12 11:30:00 2023-07-12 11:30:00 Outpatient Sus[facility] Hawk [facility] [id number] [facility] 2023-07-12 11:30:00 2023-07-12 11:30:00 Jessie dowell Patient Office Visit-Aimee Restrepo Susana Hawk [facility] [id number] [facility] 2023-07-01 10:45:00 2023-07-01 10:45:00 Outpatient [facility] [id number] [facility] 2023-07-01 10:45:00 2023-07-01 10:45:00 Outpatient Susana Hawk [facility] [id number] [facility] 2023-06-30 09:12:00 2023-06-30 09:12:00 Outpatient Sus[facility] Hawk [facility] [id number] [facility] 2023-06-30 09:12:00 2023-06-30 09:12:00 Outpatient Susana Hawk [facility] [id number]-[id number] [facility] 2023-06-29 20:43:00 2023-06-29 23:51:00 Emergency EM Matt Guido [facility] [id number] [facility] 2023-06-28 11:00:00 2023-06-28 11:00:00 Outpatient Susana Hawk Harper [facility] CHW [id number] [facility] 2023-06-28 11:00:00 2023-06-28 11:00:00 Jessie dowell Patient Office Visit-[facility] Susana Hawk Harper [facility] [id number] [facility] 2022-06-26 15:15:00 2022-06-26 15:42:[address]VA [facility] [id number] [facility] 2022-06-26 15:15:00 2022-06-26 15:42:39 Laboratory Only Only, [facility] Test Unknown, Attending Ismael Calhoun [facility] [id number] [facility] 2022-06-26 15:15:00 2022-06-26 15:15:00 [address]EL VILLANUEVA [facility] [id number] [facility] 2018-12-27 15:40:00 2018-12-27 15:40:00 Outpatient Genie Cisneros Ramez CHW [id number] [facility] 2018-12-27 15:40:00 2018-12-27 15:40:00 Jessie d Patient Office Visit-Aimee l Genie Marr [facility] [id number] 27-44ba-85b [id number] 9af [id number] [facility] 2016-02-05 11:15:00 2016-02-05 11:15:00 Minore d Patient Office Visit-Aimee Romero [facility] [id number] 27-44ba-85b [id number] 9af [id number] [facility] 2016-01-29 09:00:00 2016-01-29 09:00:00 Outpatient W [id number] 9af [id number] [facility] 2016-01-01 09:15:00 2016-01-01 09:15:00 Jessie d Patient Office Visit-Aimee Restrepo [facility] [id number] [id number]-85b [id number] 9af [id number] [facility] 2015-12-31 09:00:00 2015-12-31 09:00:00 PSYTX PT&/FAMILY 60 MINUTES Ilana Miller [facility] [id number] [id number]-85b [id number] [id number] [facility] 2015-11-21 10:45:00 2015-11-21 10:45:00 New Patient Office Visit-Aimee Romero [facility] [id number] [id number]-85b [id number] 9af [id number] [facility] 2015-09-06 09:00:00 2015-09-06 09:00:00 Outpatient Linnette Atkinson [facility] [id number] [id number]-85b [id number] 9af [id number] [facility] Results Test Description Test Time Test Comments Results Result Co [facility]ments Source [facility] VW [id number] 18:49:45ORDERING PHYSICIAN: FRANKLIN WESTFALL THREE VIEWS LEFT HAND. DATE: 08/08/2024 1:48 PM CLINICAL INDICATIONS: hand pain, concern for fracture COMPARISON: None. FINDINGS: ?Three views of the left hand demonstrate no evidence for acutefracture, subluxation or destructive osseous lesion. ?No significant soft tissue swelling or radiopaque foreign body is identified.[facility] HEAD/BRAIN W/O [id number] 23:13:00 [facility] 1985 Sex: F Name: BASIM GUERRERO [place] [facility] : 1985 Age/S: 38 / F Unit #: [id number] Loc: [place], [place] Phys: Therese oCrtez MD Acct: [id number] Dis Date: Status: PRE ER PHONE #: Exam Date:04/03/2024 8696 FAX #: Reason: FALL EXAMS: CPT CODE: [id number] CT HEAD/BRAIN W/O CONT 99175 EXAM: - CT HEAD/BRAIN W/O CONT HISTORY: FALL . [...] PAGE 1 Signed Report- XR CHEST 1 [id number] 23:10:00 [facility] GABBY GUERREROLE KAREL : 1985 Sex: F FAX: Therese Ortiz MD [phone] [place]: St: PRE Name: BASIM GUERRERO [place] [facility] : 1985 Age/S: 38/F Unit #: [id number] Loc: [place], [place] Phys: Therese Cortez MD Acct: [id number] Dis Date: Status: PRE ER PHONE #: Exam Date: 04/03/2024 2305 FAX #: Reason: FALL EXAMS: CPT CODE: [id number] XR CHEST 1 V 83905 Chest Radiograph History: FALL Comparison: June 29, 2023 Location: H45A single frontal view of the chest is submitted. The heart appears unchanged in size. Pulmonary vasculature is unremarkable. The visualized lung cruz appear to be free of disease. The bones appear unchanged. IMPRESSION: There is no radiographic evidence of acute cardiopulmonary disease. at 2310 Reported and signed by: Hebert Dooley M.D. CC: Therese Cortez MD Technologist: RT Mitchel(Joann)(CT) Trnscrd Date/Time/By: 04/03/2024 (2309) : By: ElePMT Orig Print D/T: S: 04/03/2024 (143) PAGE 1 Signed ReportCOMPREHENSIVE METABOLIC [id number] 03:05:00* Test Item Value Reference Range Interpretation [...] calculation forGFR is based on the CKD-EPI (202) calculation. This formulais race indifferent and is [...] ALKP) 61 Units/L 50.0-136.0 N CBC W/AUTO [id number] 02:43:00* Test Item Value Reference Range Interpretation [...] 3uL 0.00-0.01 N - XR ABDOMEN 1 [id number] 12:17:00 [facility] KAREL : 1985 Sex: F FAX: Marquis Heller [phone] [place]: St: [facility] FAX: Tate Morales [phone] - Name: BASIM GUERRERO [facility] : 1985 Age/S: 38/F [address] [facility] [address] Unit #: [id number] Loc: [address] [place], [place] Phys: Tate Olmedo [address] Acct: [id number] Dis Date: Status: ADM INPHONE #: [phone] Exam Date: 08/23/2023 1200 FAX #: [phone] Reason: Progression of kidney stone EXAMS: CPT CODE: [id number] XR ABDOMEN 1 V 42730 REASON FOR EXAM: Right renal stone in the pelvis. Abdomen, single view. COMPARISON: CT abdomen pelvis from August 22, 2023. No calculus seen inthe distal third of the ureter. This may [...] signed by: Tyler Seals MD CC: Marquis Ashley; Tate MONTAGUE Technologist: VIN TORRES Trnscrd Date/Time/By: 08/23/2023 (1217) : By: [email or web address] PAGE 1 Signed Report FAX: Marquis Heller [phone] [place]: St: [facility] FAX: YMTate Bustos [phone] Name: BASIM GUERRERO [facility] : 1985 Age/S: 38/F [address] Unit #: [id number] Loc: [address] [place], [place] Phys: Tate Olmedo [address] Acct: [id number] Dis Date: Status: ADM IN PHONE #: [phone] Exam Date: 08/23/2023 1200 FAX #: [phone] Reason: Progression of kidney stone EXAMS: CPT CODE: [id number] XR ABDOMEN 1 V 03791 (Continued) Orig Print D/T: S: 08/23/2023 (1220) PAGE 2 Signed Report COMPREHENSIVE METABOLIC [id number] 19:03:00* Test Item Value Reference Range Interpretation [...] code = ALKP) 66 Units/L 50.0-136.0 N [id number] 19:03:00* Test Item Value Reference Range Interpretation Comme nts MAGNESIUM (test code = MAG) 1.6 mg/dl 1.8-2.4 L CBC W/AUTO [id number] 18:47:00* Test Item Value Reference Range Interpretation [...] = NRBC#) 0.00 X10 3uL 0.00-0.01 N [id number] 11:46:00* Test Item Value Reference Range Interpretation Comme nts GLUBED (test code = GLUBED) 90 mg/dL 70-110 N - CT ABD PELVIS W/O [id number] 05:38:00 [facility] : 1985 Sex: F Name: BASIM GUERRERO [place] [facility] : 1985 Age/S: 38 / F Unit #: [id number] Loc: [place], [place] Phys: Dali Mar DO Acct: [id number] Dis Date: Status: REG ER PHONE #: Exam Date: 08/22/2023 0518 FAX #: Reason: right flank pain EXAMS: CPT CODE: [id number] CT ABD PELVIS W/O CONT 96698 EXAMINATION: - CT ABD PELVIS W/O CONT CLINICAL INDICATION: Female, 38 years old with right flank pain TECHNIQUE: Thin section axial noncontrast contiguous images were obtained through the abdomen and pelvis followed by coronal and sagittal multiplanar reformations. One or more of the following dose reduction techniques were used: Automated exposure control, adjustment of the mA and/or kV according to patient size, and/or iterative reconstruction. Unless otherwise specified, incidental findings donot require dedicated imaging follow-up. COMPARISON: None FINDINGS: Characterization of the solid organs is limited by lack of contrast media. Lower Chest: Visualized lung bases are clear. Heart is normal in size. No pericardial or pleural effusion. Liver: Normal in size and contour. Bile ducts areof normal caliber. Gallbladder: No stones, wall thickening, or pericholecystic fluid. Pancreas: Normal appearance. Spleen: Normal in size and contour. Adrenals: Normal configuration. Kidneys and ureters: Moderate right hydronephrosis and hydroureter secondary to a 5 mm right distal 3rd ureteric stone. Punctate 1 mm nonobstructing left renal calculus, scattered punctate 1 mm calculi are present within the right kidney. Bladder/Reproductive Organs: Normal in appearance. Uterus is retroverted, IUDnoted. Bowel: Moderate feces, no ileus or obstruction. Normal appendix. No PAGE 1 Signed Report (CONTINUED) Name: BASIM GUERRERO [place] [facility] : 1985 Age/S: 38 / F Unit #: [id number] Loc: [place], [place] Phys: Dali Mar DO Acct: [id number] Dis Date: Status: REG ER PHONE #: Exam Date: 08/22/2023 0518 FAX #: Reason: right flank pain EXAMS: CPT CODE: [id number] CT ABD PELVIS W/O CONT 02049 (Continued) free air, free fluid, or fluid collection. Lymph nodes: There are no pathologically enlarged abdominopelvic lymph nodes. Retroperitoneum: No mass or hemorrhage. Abdominal aorta and inferior vena cava are normal in course and caliber. Abdominal wall: No hernia or mass. Bones: No acute abnormality or suspicious bony lesion. IMPRESSION: 1. 5.1 mm right distal 3rd ureteric stone withmoderate right hydronephrosis and hydroureter. Electronically Signed by Rei Casiano on 08/22/2023 at 0538 Reported and signed by: Woodrow Casiano M.D. CC: Dali Mar DO Technologist:Renetta Samaniego RT(R)(CT) CTDI: DLP: Trnscb Date/Time: 08/22/2023 (537) [id number] Orig Print D/T: S: 08/22/2023 (0541) PAGE 2 Signed ReportCOMPREHENSIVE METABOLIC [id number] 04:58:00* Test Item Value Reference Range Interpretation Comme nts POC SODIUM (test code = ANDREAS) 142 mmol/L 134-147 N Testing performe d at:[facility] [address] [place] [address] POC POTASSIUM (test code = EDK) 3.4 [...] The assay for creatinine is traceable tothe IDWY reference method. Chronic kidney disease (CKD) maynot [...] = EDALP) 76 U/L 20-125 N URINALYSIS [id number] 04:53:00* Test Item Value Reference Range Interpretation Comme nts POC URINE COLOR (test code = EDCOLU) Yellow Yellow Testing performe d at:[facility] [address] [place] [address] POC URINE CLARITY (test code = EDCLARITY) [...] 10 3/uL 4.1-10.4 N Testing perf ormed at:[facility] [address] [facility], [place] [address] POC RED BLOOD CELL (test code = [...] 10.1 fL 7.9-13.3 N POC HCG URINE, [id number] 04:49:00* Test Item Value Reference Range Interpretation Comme nts POC HCG URINE, QUALITATIVE (test code = EDHCGU) Negative Negative Testing performe d at:[facility] [address] [place] [address] POC HCG URINE, [id number] 13:25:00* Test Item Value Reference Range Interpretation Comme nts POC HCG URINE, QUALITATIVE (test code = EDHCGU) Negative Negative Testing performe d at:[facility] [address] [place] [address] TROPONIN-I [id number] 23:45:00* Test Item Value Reference Range Interpretation Comme [facility] TROPONIN-I RAPID (test code = TROPIRAP) < 0.05 <0.05 Performed by cer tified programmer operator numerical control at [facility]"Point of Care test critical value notification anddocumentation [...] of temporalchanges in troponin levels. UA DIPSTICK [id number] 22:48:00* Test Item Value Reference Range Interpretation Comme nts UA GLUCOSE DIPSTIC POC (test code = GLUUP) NEGATIVE NEGATIVE UA BILIRUBIN DIPSTICK (test code = BILU) NEGATIVE NEGATIVE UA KETONE DIPSTICK POC (test code = KETUP) NEGATIVE NEGATIVE UA SPECIFIC GRAVITY (test code = SGU) 1.025 1.005-1.030 N UA BLOOD DIPSTIC POC (test code = BLUP) 1+ NEGATIVE A Performed by certified programmer operator numerical control at [facility] UA PH DIPSTIC POC (test code = PHUP) 5 5.0-7.0 N UA PROTEIN DIPSTICK POC (test code = DPROUP) NEGATIVE NEGATIVE UA UROBILINIOGEN QUAL (test code = UROQL) NORMAL 0.2-1.0 UA NITRITE DIPSTICK POC (test code = NITUP) NEGATIVE Negative UA LEUKOCYTE ESTERASE W REFLEX (test code = LEUUR) Negative NEGATIVE - CTA CHEST FOR [id number] 22:14:00 [facility] : 1985 Sex: F Name: BASIM GUERRERO [place] [facility] : 1985 Age/S: 38 / F Unit #: [id number] Loc: [place], [place] Phys: Matt Guido MD Acct: [id number] Dis Date: Status: REG ER PHONE #: Exam Date: 06/29/2023 3207 FAX #: Reason: elevated d-dimer EXAMS: CPT CODE: [id number] [place] [address] LOCATION: 3 EXAM: CT CHEST PULMONARY EMBOLISM PROTOCOL HISTORY: [...] 1 Signed Report (CONTINUED) Name: BASIM GUERRERO [facility] : 1985 Age/S: 38 / F Unit #: [id number] Loc: [place], [place] Phys: Matt Guido MD Acct: [id number] Dis Date: Status: REG ER PHONE #: Exam Date: 06/29/2023 2202 FAX #: Reason: elevated d-dimer EXAMS: CPT CODE: [id number] [place] [address] (Continued) at 2214 Reported and signed by: Naya Nguyen M.D. CC: Matt Guido MD Technologist:Marci Magallon, RT(R)(CT) CTDI: DLP: Trnscb Date/Time: 06/29/2023 (2213) t.SDR.NS15 Orig Print D/T: S: 06/29/2023 (2216) PAGE 2 Signed ReportTROPONIN-I RAPID 2023-06-29 21:42:00* Test Item Value Reference Range Interpretation Comme nts TROPONIN-I RAPID (test code = TROPIRAP) < 0.05 <0.05 Performed by cer tified programmer operator numerical control at [facility]"Point of Care test critical value notification anddocumentation [...] identification of temporalchanges in troponin levels. D-DIMER [id number] 21:37:00* Test Item Value Reference Range Interpretation Comme nts D-DIMER RAPID (test code = DDIMRAP) 694 ng/mLDDU 0-500 HH Wjwtn-ci-Qalj te st, critical value notification anddocumentation is done by nursing staff.Performed by certified programmer operator numerical control at [facility] - XR CHEST 1 [id number] 21:25:00 [facility] : 1985 Sex: F FAX: Matt Guido MD [place]: St: REG Name: BASIM GUERRERO [facility] : 1985 Age/S: 38/F Unit #: [id number] Loc: [place], [place] Phys: Matt Guido MD Acct: [id number] Dis Date: Status: REG ER PHONE #: Exam Date: 06/29/20232115 FAX #: Reason: Chest Pain EXAMS: CPT CODE: [id number] XR CHEST 1V 61257 EXAM: AP chest LOCATION: H 12 HISTORY: Chest Pain COMPARISON: None. FINDINGS: The lungs areclear. No infiltrate or effusion is seen. The [...] 10 3/uL 4.1-10.4 H Testing perf ormed at:[facility] [address] [place] [address] POC RED BLOOD CELL (test code = [...] code = EDMPV) 10.0 fL 7.9-13.3 N Notes Date/Time Note Provider Source 2024-08-16 14:15:00 Addended by: CHRIS REED MD on: 08/18/2024 09:54 AM Modules accepted: Level of Service JUS-[employer]ASTIC AND RECONSTRUCTIVE SURGERY STAFF [facility] 2024-08-08 14:39:06 Summary: provided resources Register Clerk Note: 2:39 PM CC rounded on patient and provided [facility]- where patient will be relocating to ZACK Raines, RN, ACM-RN Register Clerk, Case Management Department [facility] Emergency Room M-F 7am-3pm E: [email or web address] C: [phone] O: [phone] Cecilia Parisi RN [facility] 2024-08-08 14:20:52 Provider at bedside for splint application. Nile Mills RN [facility] 2024-08-08 13:51:54 Pt ambulates to restroom unassisted with steady gait. Estella Childers RN [facility] 2024-08-08 12:34:28 Basim Guerrero is a 39 year old female presenting to the ED today for: Chief Complaint Patient presents with Arm Pain Pt to ED today for left arm pain that started yesterday after falling and trying to catch self. Pt has splint from home in place. Pt reports swelling and pain with movement. Pt was seen at [facility] Urgent care after incident and prescribed tylenol 3 with no relief. Pt has feeling to all digits, reports sensitivity with any movement to digits 4 and 5. - History reviewed. No pertinent past medical history. Griselda Topete RN [facility] 2024-08-07 11:14:[address] [facility] ([facility] EMERGENCY PROVIDER REPORT REPORT#:[id number] REPORT STATUS: Signed DATE:08/07/24 TIME: 1114 PATIENT: BASIM GUERRERO UNIT #: [id number] ROOM/BED: : 84 AGE: 39 SEX:F PCP PHYS: No Primary or Family Physician SERVICE AUTHOR: Crystal Hernandez MD REP SRV REP SRV TM: 1114 * ALL edits or amendments must be made on the electronic/computer document * HPI-Trauma Minor/Fall General Confirmed Patient Yes Patient Type Existing patient Initial Greet Date/Time 08/07/24 1010 Presentation Chief Complaint Fall on outstretched hand, Extremity pain Reason for ED Visit (v.PCP/UC) left hand injury Hx Obtained From Patient Onset Occurred Today, Just prior to arrival, Hours ago (1) Symptom Duration Since onset, Constant Progression since Onset Constant, Gradually worsening Caused by Accidental, Fall on ground Timing of Trauma Date of Trauma 08/07/24 Time of Trauma 0800 Context: Occurred at Home injury Location Face, Hand L, Lower extremity R, Lower extremity L Quality Aching, Cramping, Dull, Fullness, Painful, Pressure, Throbbing, Tightness Pain/Sev: Onset Mild Pain/Sev: Current Moderate Associated with Reports: Pain on walking. Denies: Abdominal pain, Chest pain, Difficulty breathing, Fever, Headache, Heel pain R, Heel pain L, Inability to bear weight, Loss of consciousness, Nausea, Neck pain, Neuro symptoms pre-arriv, Numb extremities, Shortness of breath, Syncope, Vision change, Vomiting, Weak extremity. Associated Other Pt denies other symptoms Exacerbated by Movement, Palpation, Position Relieved by Nothing Context Recent Healthcare No recent doctor visit Similar Sx Previous No Additional Context The patient tripped and fell outside her front door this morning just prior to arrival. She was trying to get her dog outside. She has abrasions to the right side of her face, pain in the left hand and wrist, and abrasions to both knees. No loss of consciousness. No nausea or vomiting. She was ambulatory after it happened. No medication was taken prior to arrival. Risk-Trauma Minor/Fall Risk Stratification Nexus C-Spine Criteria No: Post midline tenderness, Intoxicated, Altered LOC/alertness, Focal neuro deficit pres, Distracting injury pres. [place] Head CT Rule None apply, rule neg [place] Coma Score: Copyright [employer] Shiv [place] Copyright [employer] [facility] Eye opening: (4) Spontaneous Verbal response: (5) Oriented Best motor response: (6) Obeys commands GCS Score: 15 Intracranial Bleed Risk factors reviewed Bleeding Risk factors reviewed Spine Injury Risk factors reviewed Review of Systems ROS Statements All systems rev neg except as marked. Focused Review of Systems Constitutional Denies: Chills, Fever, Lethargy. Eyes Denies: Eye pain bilat, Redness bilat, Visual loss bilat. Respiratory Denies: Cough, non-productive, Cough, productive, Shortness of breath. Musculoskeletal Denies: Back pain, Extremity pain. Skin Denies: Abrasion, Laceration. Neurologic Denies: Change LOC, Dizziness, Focal weakness, Headache, Numbness, Slurred speech. Past Medical History - Adult Stated Complaint LEFT HAND PAIN AFTER FALL Allergies Coded Allergies: metronidazole (Severe, ANAPHALACTIC SHOCK 08/07/24) DRUG INGREDIENT Fam METRONIDAZOLE lamotrigine (From LAMICTAL) (ANAPHYLLAXIS 08/07/24) Home Medications Active Scripts ACETAMINOPHEN/CODEINE (TYLENOL WITH CODEINE #3 300/30 MG) 1 TAB PO Q4H PRN PRN ACUTE PAIN ACETAMINOPHEN/CODEINE (TYLENOL WITH CODEINE #3 300/30 MG) 1 TAB PO Q4H PRN PRN ACUTE PAIN #30 TABS Prov: 08/24/23 KETOROLAC (TORADOL) 10 MG PO Q6H PRN PRN PAIN KETOROLAC (TORADOL) 10 MG PO Q6H PRN PRN PAIN #20 TABS Prov: 08/24/23 TAMSULOSIN ER (FLOMAX) 0.4 MG PO DAILY TAMSULOSIN ER (FLOMAX) 0.4 MG PO DAILY #5 CAPS Prov: 08/24/23 Discontinued Scripts ONDANSETRON ODT (ZOFRAN ODT) 4 MG PO Q4H PRN PRN Nausea ONDANSETRON ODT (ZOFRAN ODT) 4 MG PO Q4H PRN PRN Nausea #10 TABS Prov: 08/24/23 DC: 08/07/24 1019 Therapy completed CEFDINIR (OMNICEF) 300 MG PO Q12H CEFDINIR (OMNICEF) 300 MG PO Q12H #6 CAPS Prov: 08/24/23 DC: 08/07/24 1019 Therapy completed Reported Medications LISINOPRIL (ZESTRIL) 10 MG PO DAILY LIRAGLUTIDE (VICTOZA (6mL)) 0.8 SUBQ DAILY FLUoxetine 20 MG PO DAILY busPIRone (BUSPIRONE) 10 MG PO BID PRN ANXIETY Review of Nursing Notes Rev avail, and agree Physical Exam Vital Signs Vital Signs First Documented: Result Date Time Pulse Ox 97 08/079 B/P 171/104 08/07 1009 B/P Mean 126 08/07 1009 O2 Delivery Room air 08/07 1009 Temp 36.6 08/07 100 Pulse 69 08/07 100 Resp 16 08/07 1009 Last Documented: Result Date Time Pulse Ox 97 08/07 1009 B/P 171/104 08/079 B/P Mean 126 08/07 1009 O2 Delivery Room air 08/07 1009 Temp 36.6 08/07 1009 Pulse 69 08/07 100 Resp 16 08/07 1009 Review of Vital Signs Reviewed, Vital signs normal Focused PE General/Const General/Const Awake, Alert MS Head Head Atraumatic, Normocephalic Eyes Eyes Atraumatic, PERRL, EOMI, No periorbital redness, No periorbital swelling Ears/Nose/Throat Ears/Nose/Throat Atraumatic, Airway patent, Mucous membranes moist, Pharynx NL MS Neck Neck Atraumatic, Supple, Full range of motion, No swelling, Non-tender, No midline vertebral tend Resp/Chest Respiratory/Chest Breath sounds NL, Breath sounds = bilat, No respiratory distress, No rales, No rhonchi, No wheezing, No chest tenderness, No chest wall deformity, No crepitus Cardiovascular Cardiovascular Heart rate NL, Regular rhythm, Heart sounds NL, Cap refill not delayed, Peripheral circulation NL Abdomen/GI Abdomen/GI Atraumatic, Soft, Non-tender, No guarding, No rebound, No distention MS Back Back Atraumatic, Inspection NL, Painless range of motion, Non-tender, No midline vertebral tend, No CVA tenderness MS Upper Extrem Upper Extremity/MS Atraumatic, Inspection NL, Full range of motion, No swelling, Non-tender, No erythema, No deformity, Neurologic intact, Vascular intact MS Wrist/Hand Wrist/Hand Atraumatic, Inspection NL, Full range of motion, No deformity, Neurologic intact, Vascular intact, No clubbing/cyanosis Left Wrist Swelling present, Tenderness present. Negative: Tender snuffbox, Tender carpal tunnel, Carpal tunnel signs, Ecchymosis present, Erythema present, Warmth present, ROM reduced, Joint effusion present, Ganglion cyst present, Deformity present, Open fracture present, Pulse radial absent, Pulse radial decreased, Pulse ulnar absent, Pulse ulnar decreased, Neuro deficit present. Left Hand Swelling present, Tenderness present. Negative: Ecchymosis present, Erythema present, Warmth present, ROM reduced, Joint effusion present, Ganglion cyst present, Tendon injury extensor, Tendon injury flexor, High-press punct wound, Deformity present, Open fracture present, Neuro deficit present, Amputation. MS Lower Extrem Lower Ext/Pelvis/MS Inspection NL, No swelling, Non-tender, No erythema, No deformity, Neurologic intact, Vascular intact, No edema MS Ankle/Foot Ankle/Foot Inspection NL, No swelling, No erythema, Non-tender, No deformity, Neurologic intact, Vascular intact, No edema Skin Skin Atraumatic, Color NL, Warm, Dry, Intact, Turgor NL Neurologic Neurologic Oriented X3, Speech NL, No motor deficits, No sensory deficits, Cerebellar NL Interpretation Diagnostics Lab Results Interpretation Results Recent Impressions: RADIOLOGY - XR FOREARM 2 VIEWS LT 08/07 1039 Report Impression - Status: SIGNED Entered: 08/07/20241046 IMPRESSION: There is no visualized acute fracture or dislocation. The visualized joint spaces and alignment are preserved. The visualized soft tissues are unremarkable. Impression By: Alberto Natarajan M.D. RADIOLOGY - XR WRIST 3 + V LT 08/07 103 Report Impression - Status: SIGNED Entered: 08/07/20241046 IMPRESSION: There is no visualized acute fracture or dislocation. The visualized joint spaces and alignment are preserved. The visualized soft tissues are unremarkable. Impression By: Alberto Natarajan M.D. RADIOLOGY - XR HAND 3 + V LT 08/07 1039 Report Impression - Status: SIGNED Entered: 08/07/20241046 IMPRESSION: There is no visualized acute fracture or dislocation. The visualized joint spaces and alignment are preserved. The visualized soft tissues are unremarkable. Impression By: Alberto Natarajan M.D. Lab Imaging Statement Laboratory radiographic studies reviewed and considered in the medical decision-making. Point of Care Testing Pulse Oximetry Pulse Ox % 97 On: Room air Interpretation Interpreted by me Pulse oximetry normal Time 1009 Re-Evaluation MDM Re-Evaluation/Progress #1 Text/Dict Note X-rays of the left hand and left wrist were negative for fractures. An Patrick wrap was provided. She will follow-up with her doctor later this week. Return to the ER for any issues. All questions answered at the bedside. Time of Re-Eval 1117 Re-Eval Status Unchanged ED Course Medication(s) Ordered Medication(s) Ordered: Central Nervous System Agents Sig/Radha Start time Last Medication Dose Route Stop Time Status Admin Ibuprofen 800 MG X1ED STA 08/07 1025 DC 08/07 PO 08/07 1026 1031 Patient Discharge Departure Vital Signs/Condition Vital Signs First Documented: Result Date Time Pulse Ox 97 08/07 1009 B/P 171/104 08/07 1009 B/P Mean 126 08/07 100 O2 Delivery Room air 08/07 1009 Temp 36.6 10/07 1009 Pulse 69 08/07 1009 Resp 16 08/07 1009 Last Documented: Result Date Time Pulse Ox 97 08/07 1009 B/P 171/104 08/07 1009 B/P Mean 126 08/07 1009 O2 Delivery Room air 08/07 1009 Temp 36.6 08/07 1009 Pulse 69 08/07 1009 Resp 16 08/07 1009 All vital signs available at the time of this entry have been reviewed. Clinical Impression Clinical Impression Primary Impression: Fall Secondary Impressions: Left wrist sprain, Sprain of left hand Disposition Decision Discharge )( Discharged to Home Yes )( Time 1117 )( Date 08/07/24 Discharge/Care Plan Counseled Regarding Diagnosis, Medication changes, Prescriptions, Need for follow-up, When to return to ED Rx Drug Database Reviewed Yes (Auto) Prescriptions Current Visit Scripts DICLOFENAC SODIUM ER (VOLTAREN) 75 MG PO BID PRN pain DICLOFENAC SODIUM ER (VOLTAREN) 75 MG PO BID PRN pain #10 TABS ACETAMINOPHEN/CODEINE (TYLENOL WITH CODEINE #3 300/30 MG) 1 TAB PO BID ACETAMINOPHEN/CODEINE (TYLENOL WITH CODEINE #3 300/30 MG) 1 TAB PO BID #10 TABS CEPHALEXIN (KEFLEX) 500 MG PO BID 10 Days #20 CAPS Prescriptions Reviewed Risks, Benefits, Alternative treatment Patient Instructions ED Wrist Sprain Referrals Provider Referral: Dyllan Reyes MD Address: [address] [place] [address] [address] [place] [address] Provider Referral: Gladis Estrada MD Address: [address] [place] [address] Provider Referral: Ly Marlow MD Address: [address] [facility] [address] [place] [address] Provider Referral: Mathew Denny MD Address: [address] [facility] [address] [place] [address] Provider Referral: Jase Ortega DO Address: [address] [facility] [place] [address] Discharge Note I have spoken with the patient and/or caregivers. I have explained the patient's condition, diagnoses and treatment plan based on the information available to me at this time. I have answered the patient's and/or caregiver's questions and addressed any concerns. The patient and/or caregivers have as good an understanding of the patient's diagnosis, condition and treatment plan as can be expected at this point. The vital signs have been stable. The patient's condition is stable and appropriate for discharge from the emergency department. The patient will pursue further outpatient evaluation with the primary care physician or other designated or consulting physician as outlined in the discharge instructions. The patient and/or caregivers are agreeable to this plan of care and follow-up instructions have been explained in detail. The patient and/or caregivers have received these instructions in written format and have expressed an understanding of the discharge instructions. The patient and/or caregivers are aware that any significant change in condition or worsening of symptoms should prompt an immediate return to this or the closest emergency department or a call to 911. Fall/Minor Trauma Dispo Note The patient is discharged home with supportive care, a plan for pain control, and follow-up instructions that detail what to expect over the next 48 hours and what symptoms should prompt immediate return to the ED. Follow-up instructions have been explained in detail to the patient, and the instructions have been provided in written format. The patient is comfortable with the plan of care and has expressed an understanding of the discharge instructions. The patient and/or caregivers are aware that any significant change in condition or worsening of symptoms should prompt an immediate return to this or the closest emergency department or a call to 911. Quality Measures BP F/U for HTN Referred for BP f/u < 4wk at 1119 RPT #:[id number] END OF REPORT [facility] 2024-04-04 00:02:[address] [facility] ([facility]) EMERGENCY PROVIDER REPORT REPORT#:[id number] REPORT STATUS: Signed DATE:04/04/24 TIME: 1 PATIENT: BASIM GUERRERO UNIT #: [id number] ROOM/BED: AGE: 38 SEX: F PCP PHYS: No Primary or Family Physician SERVICE AUTHOR: Therese Cortez MD * ALL edits or amendments must be made on the electronic/computer document * HPI-Trauma Minor/Fall General Initial Greet Date/Time 04/03/24 2229 Presentation Chief Complaint Fall Hx Obtained From Patient, Family Onset Occurred Gradual Symptom Duration Constant Progression since Onset Constant Location Head, Chest Pain/Sev: Onset Moderate Pain/Sev: Current Mild Associated with Reports: Headache. Denies: Abdominal pain. Exacerbated by Nothing Relieved by Nothing Review of Systems ROS Statements All systems rev neg except as marked. Basic Review of Systems Basic ROS CV: No chest pain, GI: No abd pain/vomiting, : No dysuria/frequency, HEM: No bleeding/bruising, PSYCH: NL thought content Past Medical History - Adult Stated Complaint HEAD,RIB PAIN,HX OF LOSS OF CONSCIOUSNESS Allergies Coded Allergies: metronidazole (Severe, ANAPHALACTIC SHOCK 04/03/24) DRUG INGREDIENT Fam METRONIDAZOLE lamotrigine (From LAMICTAL) (ANAPHYLLAXIS 04/03/24) Home Medications Active Scripts ACETAMINOPHEN/CODEINE (TYLENOL WITH CODEINE #3 300/30 MG) 1 TAB PO Q4H PRN PRN ACUTE PAIN ACETAMINOPHEN/CODEINE (TYLENOL WITH CODEINE #3 300/30 MG) 1 TAB PO Q4H PRN PRN ACUTE PAIN #30 TABS Prov: 08/24/23 KETOROLAC (TORADOL) 10 MG PO Q6H PRN PRN PAIN KETOROLAC (TORADOL) 10 MG PO Q6H PRN PRN PAIN #20 TABS Prov: 08/24/23 ONDANSETRON ODT (ZOFRAN ODT) 4 MG PO Q4H PRN PRN Nausea ONDANSETRON ODT (ZOFRAN ODT) 4 MG PO Q4H PRN PRN Nausea #10 TABS Prov: 08/24/23 CEFDINIR (OMNICEF) 300 MG PO Q12H CEFDINIR (OMNICEF) 300 MG PO Q12H #6 CAPS Prov: 08/24/23 TAMSULOSIN ER (FLOMAX) 0.4 MG PO DAILY TAMSULOSIN ER (FLOMAX) 0.4 MG PO DAILY #5 CAPS Prov: 08/24/23 Reported Medications LISINOPRIL (ZESTRIL) 10 MG PO DAILY LIRAGLUTIDE (VICTOZA (6mL)) 0.8 SUBQ DAILY FLUoxetine (PROzac) 20 MG PO DAILY busPIRone (BUSPIRONE) 10 MG PO BID PRN ANXIETY Pt reports no significant: Past medical history, Past surgical history Smoking status for patients 13 years old or older: Never Smoker Physical Exam Vital Signs Vital Signs First Documented: Result Date Time Pulse Ox 97 04/03 2233 B/P 169/100 04/03 2233 B/P Mean 127 04/03 2233 Temp 36.7 04/03 2233 Pulse 90 04/03 2233 Resp 16 04/03 2233 Last Documented: Result Date Time Pulse Ox 97 04/04 0015 B/P 157/97 04/04 0015 B/P Mean 121 04/04 15 Pulse 72 04/04 0015 Temp 36.7 04/03 2233 Resp 16 04/03 2233 Review of Vital Signs Reviewed Basic Physical Exam Basic PE EYES: PERRL, conj clear, ENT: Membranes moist, RESP: No resp distress, CV: Reg rate rhythm, ABD: Soft/non-tender, EXT: No gross abnormality, SKIN: No rashes, warm/dry, NEURO: alert oriented, NEURO: gross movement NL, PSYCH: NL thought content Focused PE General/Const General/Const Awake, Alert MS Head Head Normocephalic MS Neck Neck Atraumatic, Supple, No meningismus, Full range of motion, No adenopathy, No swelling, Non-tender, No midline vertebral tend, No masses, No crepitus, No JVD, No carotid bruit, Thyroid NL, No tracheal deviation Interpretation Diagnostics Lab Results Interpretation Results Recent Impressions: RADIOLOGY - XR CHEST 1 V 04/03 2309 Report Impression - Status: SIGNED Entered: 04/03/2024 2313 IMPRESSION: There is no radiographic evidence of acute cardiopulmonary disease. Impression By: Libby Dooley M.D. CAT SCAN - CT HEAD/BRAIN W/O CONT 04/03 2309 Report Impression - Status: SIGNED Entered: 04/03/2024 2316 IMPRESSION: No acute intracranial abnormality. Impression By: Cesar Andrade M.D. Imaging Statement Radiographic studies reviewed and considered in the medical decision-making. Re-Evaluation MDM Differential Diagnosis Differential Diagnosis Contusion, Fracture Patient Discharge Departure Vital Signs/Condition Vital Signs First Documented: Result Date Time Pulse Ox 97 04/03 2233 B/P 169/100 04/03 2233 B/P Mean 127 04/03 2233 Temp 36.7 04/03 2233 Pulse 90 04/03 2233 Resp 16 04/03 2233 Last Documented: Result Date Time Pulse Ox 97 / 0015 B/P 157/97 04/04 0015 B/P Mean 121 04/04 15 Pulse 72 04/04 15 Temp 36.7 04/03 2233 Resp 16 04/03 2233 All vital signs available at the time of this entry have been reviewed. Clinical Impression Clinical Impression Primary Impression: Head injury Secondary Impressions: Chest wall contusion Disposition Decision Discharge )( Discharged to Home Yes )( Time 0003 )( Date 04/04/24 Discharge/Care Plan Patient Instructions ED Chest Bruise (Contusion), ED Head Injury (Adult) Additional Instructions Follow-up with your PCP at 0648 RPT #:[id number] END OF REPORT [facility] 2023-08-24 14:09:00 [facility] ([facility] Hospitalist Discharge Summary REPORT#:[id number] REPORT STATUS: Signed REPORT INITIALIZATION DATE:08/24/23 TIME: 1408 PATIENT: BASIM GUERRERO UNIT #: [id number] ROOM/BED: [place] [address] : 84 AGE: 38 SEX: F ATTEND: Marquis Pak MD ADM AUTHOR: Tate Olmedo REPT SERVICE DT/TIME: 08/24/231408 * ALL edits or amendments must be made on the electronic/computer document * General Information Date of admission: Observation Start Date: 08/22/23 Date of admission: 08/23/23 Discharge date: 08/24/23 Admission diagnosis: Ureteral calculi Discharge diagnosis: Same Hospital course: 38 yo female with PMH of hypertension, DM type 2, obesity admitted to the hospital with right side flank pain. Admitted as a direct admission from urgent care. She had a Ct scan abdomen/pelvis which showed a 5.1 mm right distal 3rd ureteric stone with moderate right hydronephrosis and hydroureter. The patient was admitted here for urology evaluation. Hx Obtained From Patient Pt. condition on discharge: improved, stable Free Text DxA P Notes Free text DxA P notes: Right ureteral distal stone--> Med MGMT for now, check KUB for progression. Continue IVF Dehydration Hypertension Dm type 2 IV fluids IV antibiotics Urology consultation Pain controlled FSBG qac amd hs sliding scale insulin Pt is doing better Stone not notable on KUB. There is no CVA tenderness and lab is stable. Discussed with pt and with Dr Eckert, will DC pt home with pain control and F/ U. Med Rec Med Rec Discharge meds: Continue taking these medications: LISINOPRIL (ZESTRIL) 10 MG TAB 10 MILLIGRAM ORAL DAILY. LIRAGLUTIDE (VICTOZA (6mL)) (Unknown Strength) PEN.INJCTR 0.8 SUBCUTANEOUS DAILY. FLUoxetine (PROzac) 20 MG CAP 20 MILLIGRAM ORAL DAILY. busPIRone (BUSPIRONE) 10 MG TAB 10 MILLIGRAM ORAL TWICE DAILY. as needed for ANXIETY Start taking the following new medications: ACETAMINOPHEN/CODEINE (TYLENOL WITH CODEINE #3 300/30 MG) 300 MG-30 MG TAB 1 TABLET ORAL EVERY 4 HOURS NEEDED. as needed for ACUTE PAIN Qty = 30 No Refills KETOROLAC (TORADOL) 10 MG TAB 10 MILLIGRAM ORAL EVERY 6 HOURS NEEDED. as needed for PAIN Qty = 20 No Refills ONDANSETRON ODT (ZOFRAN ODT) 4 MG TAB.RAPDIS 4 MILLIGRAM ORAL EVERY 4 HOURS NEEDED. as needed for Nausea Qty = 10 No Refills CEFDINIR (OMNICEF) 300 MG CAP 300 MILLIGRAM ORAL EVERY 12 HOURS. Qty = 6 No Refills TAMSULOSIN ER (FLOMAX) 0.4 MG CAP.SR.24H 0.4 MILLIGRAM ORAL DAILY. Qty = 5 No Refills Objective VS/I O Last Documented: Result Date Time Pulse Ox 96 08/24 1129 B/P 156/101 08/24 1129 B/P Mean 119.6 08/24 1129 O2 Delivery Room air 08/24 1129 Temp 98.1 08/24 1129 Pulse 72 08/24 1129 Resp 15 08/24 1129 General appearance: alert, awake, oriented Head/Eyes: atraumatic, clear cornea, EOMI, normal conjunctiva/sclera, normal eyelids/periorb., normocephalic, PERRL ENT: normal dentition, normal ear left, normal ear right, normal nose, normal pharynx, normal sinus Neck: full range of motion, non-tender, supple/no meningismus, no masses or swelling Cardiovascular: normal capillary refill, normal heart sounds Respiratory: aerating well, clear to auscultation, no distress Abdomen: non-tender, normal bowel sounds, soft, no distention, no guarding, no hernia, no mass/organomegaly, no rebound Rectal: deferred Extremities: moves all, normal capillary refill, normal range of motion, no edema Musculoskeletal: normal inspection, painless range of motion Neuro/DOWEL PIN MAN: alert, oriented X 3 Skin: dry, intact Lymphatics: axilla normal, inguinal normal, neck normal, no lymphadenopathy Psychiatry: normal affect, normal judgment/insight, normal mood, not homicidal, not suicidal Results Findings/Data: Laboratory Tests: 08/24 0231 Chemistry Sodium (134.0 - 147.0 mmol/l) 139 Potassium (3.6 - 5.2 mmol/L) 3.3 L Chloride (98.0 - 107.0 mmol/l) 107 Carbon Dioxide (21.0 - 33.0 mmol/l) 25.1 Anion Gap (0 - 20) 10.2 BUN (7.0 - 18.0 mg/dl) 6 L Creatinine (0.60 - 1.30 mg/dL) 0.86 Estimated Creat Clear (>30 mL/min) 85 Glomerular Filtr Rate (mL/min) 88 Glucose (70.0 - 110.0 mg/dl) 86 Calcium (8.0 - 10.5 mg/dl) 7.6 L Total Bilirubin (0.0 - 1.0 mg/dl) 0.3 AST (15 - 37 Units/L) 24 ALT (12.0 - 78.0 Units/L) 30 Total Alk Phosphatase (50.0 - 136.0 Units/L) 61 Total Protein (6.4 - 8.2 gm/dL) 6.1 L Albumin (3.2 - 4.7 gm/dl) 2.4 L Hematology WBC (4.5 - 11.0 K/mm3) 7.7 RBC (3.80 - 5.20 M/mm3) 3.78 L Hgb (12.0 - 16.0 gm/dL) 10.4 L Hct (36.0 - 48.0 %) 32.5 L MCV (82.0 - 99.0 UM3) 86.0 MCH (25.5 - 32.5 UUG) 27.5 MCHC (29.0 - 35.5 gm/dL) 32.0 RDW (11.5 - 15.0 %) 14.1 Plt Count (150 - 400 K/mm3) 244 MPV (7.4 - 10.4 fl) 9.2 Neut % (Auto) (49.0 - 76.0 %) 61.5 Lymph % (Auto) (23.0 - 38.0 %) 26.2 Bleckley % (Auto) (1.0 - 10.0 %) 6.6 Eos % (Auto) (1.0 - 5.0 %) 5.0 Baso % (Auto) (0.0 - 1.0 %) 0.4 Neut # (Auto) (2.4 - 6.3 K/mm3) 4.7 Lymph # (Auto) (1.2 - 4.0 K/mm3) 2.0 Bleckley # (Auto) (0.0 - 0.6 K/mm3) 0.5 Eos # (Auto) (0.0 - 0.7 K/MM3) 0.4 Baso # (Auto) (0.0 - 0.2 K/mm3) 0.0 Absolute Nucleated RBC (0.00 - 0.01 X10 3uL) 0.00 Immature Gran % (0.0 - 0.4 %) 0.3 Nucleated RBC % (0.0 - 0.1 %) 0.0 Immature Gran # (0.00 - 0.07 x10 3/uL) 0.02 Discharge Instructions PCP PCP follow-up: PCP: No Primary or Family Physician Discharge to: Home/Self Care Additional Discharge Routines: PCP Follow-Up, [facility] Follow-Up Diet: Resume Home Diet/Feeds Activity: As Tolerated Discharge management: greater than 30 mins, face to face encounter Follow-up Appointments PCP follow-up: PCP: No Primary or Family Physician PCP follow up timeframe: In 1-2 weeks Consulting provider 1: Provider 1: Mick Eckert MD Specialty: Urology at 1411 at 0859 RPT #:[id number] END OF REPORT [facility] 2023-08-23 11:09:00 [facility] ([facility] Hospitalist Progress Note REPORT#:[id number] REPORT STATUS: Signed REPORT INITIALIZATION DATE:08/23/23 TIME: 1108 PATIENT: BASIM GUERRERO UNIT #: [id number] ROOM/BED: [facility] : 84 AGE: 38 SEX: F ATTEND: Marquis Pak MD ADM AUTHOR: Tate Olmedo REPT SERVICE DT/TIME: 08/23/23 110 * ALL edits or amendments must be made on the electronic/computer document * Subjective Chief complaint: right flank pain, Ureteral calculi Pain improving, feels "lower" HPI: 38 yo female with PMH of hypertension, DM type 2, obesity admitted to the hospital with right side flank pain. Admitted as a direct admission from urgent care. She had a Ct scan abdomen/pelvis which showed a 5.1 mm right distal 3rd ureteric stone with moderate right hydronephrosis and hydroureter. The patient was admitted here for urology evaluation. Patient reports: Yes: feeling better, pain, pain controlled, resting comfortably. No: abdominal pain, chest pain, chills, constipation, cough, diarrhea, dizziness, fever, headache, nausea, shortness of breath, vomiting. Objective General VS/I O: Vital Signs: Date Time Temp Pulse Resp B/P B/P Pulse O2 O2 Flow FiO2 Mean Ox Delivery Rate 08/23 0736 98.2 76 18 129/84 99.1 96 08/23 0424 98.2 73 15 115/74 87.7 96 08/22 2254 98.4 76 16 125/71 89.4 96 08/22 2004 98.2 71 16 146/82 103.3 99 08/22 1530 98.1 61 18 136/78 97.1 96 24 hour I O ending at 0700: 08/23 0700 08/22 1900 Intake Total Output Total Balance Patient 109.6 kg Weight Weight Bed scale Measurement Method PATIENT WEIGHT: Weight (lb): 241 Weight (oz): 10.03 Weight (kg): 109.600 Physical Exam General appearance: alert, awake, no acute distress, pleasant, no respiratory distress Head/Eyes: atraumatic, clear cornea, EOMI, normal conjunctiva/sclera, normal eyelids/periorb., normocephalic, PERRL ENT: normal dentition, normal ear left, normal ear right, normal nose, normal pharynx, normal sinus Neck: full range of motion, non-tender, supple/no meningismus, no masses or swelling Cardiovascular: normal capillary refill, normal heart sounds Respiratory: aerating well, clear to auscultation, no distress Abdomen: non-tender, normal bowel sounds, soft, no distention, no guarding, no hernia, no mass/organomegaly, no rebound Rectal: deferred Extremities: moves all, normal capillary refill, normal range of motion, no edema Musculoskeletal: normal inspection, painless range of motion Neuro/DOWEL PIN MAN: alert, oriented X 3 Skin: dry, intact Lymphatics: axilla normal, inguinal normal, neck normal, no lymphadenopathy Psychiatry: normal affect, normal judgment/insight, normal mood, not homicidal, not suicidal Results Findings/Data: Laboratory Tests 08/22 1120 Chemistry Sodium (134.0 - 147.0 mmol/l) 135 Potassium (3.6 - 5.2 mmol/L) 3.4 L Chloride (98.0 - 107.0 mmol/l) 104 Carbon Dioxide (21.0 - 33.0 mmol/l) 25.1 Anion Gap (0 - 20) 9.3 BUN (7.0 - 18.0 mg/dl) 7 Creatinine (0.60 - 1.30 mg/dL) 1.01 Estimated Creat Clear (>30 mL/min) 73 Glomerular Filtr Rate (mL/min) 73 Glucose (70.0 - 110.0 mg/dl) 97 POC Glucose (70 - 110 mg/dL) 90 Calcium (8.0 - 10.5 mg/dl) 7.4 L Magnesium (1.8 - 2.4 mg/dl) 1.6 L Total Bilirubin (0.0 - 1.0 mg/dl) 0.3 AST (15 - 37 Units/L) 43 H ALT (12.0 - 78.0 Units/L) 39 Total Alk Phosphatase (50.0 - 136.0 Units/L) 66 Total Protein (6.0 - 8.1 GM/DL) 6.3 Albumin (3.2 - 4.7 gm/dL) 2.7 L Laboratory Tests 10/22 1811 Hematology WBC (4.5 - 11.0 K/mm3) 12.7 H RBC (3.80 - 5.20 M/mm3) 4.01 Hgb (12.0 - 16.0 gm/dL) 11.2 L Hct (36.0 - 48.0 %) 34.4 L MCV (82.0 - 99.0 UM3) 85.8 MCH (25.5 - 32.5 UUG) 27.9 MCHC (29.0 - 35.5 gm/dL) 32.6 RDW (11.5 - 15.0 %) 13.6 Plt Count (150 - 400 K/mm3) 262 MPV (7.4 - 10.4 fl) 9.7 Neut % (Auto) (49.0 - 76.0 %) 80.0 H Lymph % (Auto) (23.0 - 38.0 %) 12.7 L Bleckley % (Auto) (1.0 - 10.0 %) 6.4 Eos % (Auto) (1.0 - 5.0 %) 0.3 L Baso % (Auto) (0.0 - 1.0 %) 0.3 Neut # (Auto) (2.4 - 6.3 K/mm3) 10.2 H Lymph # (Auto) (1.2 - 4.0 K/mm3) 1.6 Bleckley # (Auto) (0.0 - 0.6 K/mm3) 0.8 H Eos # (Auto) (0.0 - 0.7 K/MM3) 0.0 Baso # (Auto) (0.0 - 0.2 K/mm3) 0.0 Absolute Nucleated RBC (0.00 - 0.01 X10 3uL) 0.00 Immature Gran % (0.0 - 0.4 %) 0.3 Nucleated RBC % (0.0 - 0.1 %) 0.0 Immature Gran # (0.00 - 0.07 x10 3/uL) 0.04 Diagnosis, Assessment Plan Plan discussed with: patient, nurse Free Text DxA P Notes Free text DxA P notes: Right ureteral distal stone--> Med MGMT for now, check KUB for progression. Continue IVF Dehydration Hypertension Dm type 2 IV fluids IV antibiotics Urology consultation Pain controlled FSBG qac amd hs sliding scale insulin at 1111 at 0849 RPT #:[id number] END OF REPORT [facility] 2023-08-22 17:21:00 [facility] ([facility]) Urology Consult Note REPORT#:[id number] REPORT STATUS: Signed REPORT INITIALIZATION DATE:08/22/23 TIME: 1720 PATIENT: BASIM GUERRERO UNIT #: [id number] ROOM/BED: [place] [address] : 84 AGE: 38 SEX: F ATTEND: Marquis Pak MD ADM AUTHOR: Mick Eckert MD REPT SERVICE DT/TIME: 08/22/23 172 * ALL edits or amendments must be made on the electronic/computer document * History of Present Illness HPI Requesting clinician: Dr. Pak Reason for consult: R flank pain Chief complaint: R flank pain HPI: Basim Guerrero is a 38-year-old female with past medical history of hypertension, prediabetes, obesity, anxiety who was transferred from [facility] ER for evaluation of ureterolithiasis. Patient reports developing severe onset right flank pain that progressively worsened warranting her to visit the ER. In the ED she is afebrile vital signs stable. UA not suggestive of infection consistent with a stone. CT abdomen pelvis with a 5 mm right distal ureteral stone with proximal hydroureteronephrosis. No renal function labs available. Currently she is comfortable. This is her first stone. History Smoking status for patients 13 years old or older: Never Smoker Allergies: Coded Allergies: metronidazole (Severe, ANAPHALACTIC SHOCK 08/22/23) DRUG INGREDIENT Fam METRONIDAZOLE lamotrigine (From LAMICTAL) (ANAPHYLLAXIS 08/22/23) Review of Systems ROS : Reports: flank pain, pelvic pain. Denies: frequency, hematuria, urinary retention, vaginal bleeding, vaginal discharge. All systems rev neg: except as marked Objective VS/I O: Last Documented: Result Date Time Pulse Ox 96 08/22 153 B/P 136/78 08/22 153 B/P Mean 97.1 08/22 153 Temp 98.1 10/22 1530 Pulse 61 08/22 1530 Resp 18 08/22 1530 PATIENT WEIGHT: Weight (lb): 241 Weight (oz): 10.03 Weight (kg): 109.600 Results Findings/Data: Laboratory Tests: 08/22 1120 Chemistry POC Glucose (70 - 110 mg/dL) 90 Results: labs reviewed, vital signs reviewed, CT results reviewed Free text obj notes: Physical Examination: Constitutional: no acute distress Eyes: normal external eye, conjunctiva and sclera normal Ears, nose, mouth, throat: normocephalic, moist mucous membranes Respiratory: respirations unlabored on room air Gastrointestinal: soft, non-distended Musculoskeletal: no clubbing, cyanosis or edema Skin: no rashes Neurologic: no focal deficits Psychiatric: appropriate mood and affect Hematologic: no bruising Diagnosis, Assessment Plan Diagnosis, Assessment Plan Free Text A P: This is a 38-year-old female with 5 mm right distal ureteral stone associated proximal hydroureteronephrosis. She is currently comfortable. She appears to be nontoxic. Her renal function is unknown. We discussed her options at length. Given that she is nontoxic with no signs of urinary tract infection we discussed the options of medical expulsion therapy versus intervention with ureteroscopy and laser lithotripsy. We discussed risks and potential complications of each. She elects to perform medical expulsion therapy while inpatient and if fails we can consider right ureteroscopy. - F/U creatinine -Tamsulosin 0.4 -Toradol 15 mg every 6 hours as needed -Zofran as needed -Strain urine -Continue IV fluid -Discussed p.o. hydration We will continue to follow peripherally. If patient fails medical expulsion therapy we can consider intervention while inpatient. Mick Eckert MD [facility] at 1726 RPT #:[id number] END OF REPORT [facility] 2023-08-22 16:58:00 [facility] ([facility]) Hospitalist History Physical REPORT#:[id number] REPORT STATUS: Signed REPORT INITIALIZATION DATE:08/22/23 TIME: 1657 PATIENT: BASIM GUERRERO UNIT #: [id number] ROOM/BED: [place] [address] : 84 AGE: 38 SEX: F ATTEND: Marquis Pak MD ADM AUTHOR: Marquis Pak MD REPT SERVICE DT/TIME: 08/22/23 8095 * ALL edits or amendments must be made on the electronic/computer document * History of Present Illness HPI Chief complaint: right flank pain HPI: 38 yo female with PMH of hypertension, DM type 2, obesity admitted to the hospital with right side flank pain. Admitted as a direct admission from urgent care. She had a Ct scan abdomen/pelvis which showed a 5.1 mm right distal 3rd ureteric stone with moderate right hydronephrosis and hydroureter. The patient was admitted here for urology evaluation. Hx Obtained From Patient History Social History Smoking status for patients 13 years old or older: Never Smoker Medication/Allergy-Vaccine Hx Allergies: Coded Allergies: metronidazole (Severe, ANAPHALACTIC SHOCK 08/22/23) DRUG INGREDIENT Fam METRONIDAZOLE lamotrigine (From LAMICTAL) (ANAPHYLLAXIS 08/22/23) Review of Systems : Reports: other (right flank pain). All systems rev neg: except as noted OBJECTIVE VS/I O: Vital Signs Date Temp Pulse Resp B/P B/P Mean Pulse Ox FiO2 08/22 36.7-36.9 57-61 18 136-164/78-89 0.0-97.1 96-98 Last Documented: Result Date Time Pulse Ox 96 08/22 1530 B/P 136/78 08/22 1530 B/P Mean 97.1 08/22 1530 Temp 36.7 08/22 1530 Pulse 61 08/22 1530 Resp 18 08/22 1530 Patient Weight and BMI Weight (kg): 109.600 BMI: 37.8 Medications: Active Meds + DC'd Last 24 Hrs Fluoxetine HCl (PROzac) 20 MG DAILY PO Lisinopril (PRINIVIL OR ZESTRIL) 10 MG DAILY PO Ondansetron HCl (ZOFRAN 2ML) 4 MG Q4H PRN PRN IV Ceftriaxone Sodium (cefTRIAXone 1,000 MG VIAL) 1,000 MG Q24H IV Sodium Chloride (SODIUM CHLORIDE 0.9% 10ML) 10 ML Sodium Chloride (SODIUM CHLORIDE 0.9%) 1,000 ML ASDIR IV Buspirone HCl (BUSPAR) 10 MG BID PRN PO Morphine Sulfate (morphine SULFATE) 2 MG Q4H PRN PRN IV Sodium Chloride (SODIUM CHLORIDE 0.9%) 150ML/HR CONTINUOUS Q6H IV (CAN) General appearance: alert, awake, oriented Head/Eyes: atraumatic, clear cornea, EOMI, normal conjunctiva/sclera, normal eyelids/periorb., normocephalic, PERRL ENT: normal dentition, normal ear left, normal ear right, normal nose, normal pharynx, normal sinus Neck: full range of motion, non-tender, normal thyroid, supple/no meningismus, no bruit/NL carotids, no JVD, no masses or swelling Breast: symmetrical, no mass Cardiovascular: normal capillary refill, normal heart sounds Respiratory: clear to auscultation, no distress Abdomen: non-tender, normal bowel sounds, soft, no distention, no guarding, no hernia, no mass/organomegaly, no rebound Abdomen quadrants: LLQ normal bowel sounds, LUQ normal bowel sounds, RLQ normal bowel sounds, RUQ normal bowel sounds Extremities: moves all, normal capillary refill, normal range of motion, no edema Musculoskeletal: normal inspection, painless range of motion Neuro/DOW[employer]: alert, oriented X 3 Skin: dry, intact Lymphatics: axilla normal, inguinal normal, neck normal, no lymphadenopathy Psychiatry: normal affect, normal judgment/insight, normal mood, not homicidal, not suicidal Results Findings/Data: Laboratory Tests: 08/22 1120 Chemistry POC Glucose (70 - 110 mg/dL) 90 Diagnosis, Assessment Plan Free Text A P: Right ureteral distal stone Dehydration Hypertension Dm type 2 IV fluids IV antibiotics Urology consultation Pain control FSBG qac amd hs sliding scale insulin Plan discussed with: patient at 1706 RPT #:[id number] END OF REPORT [facility] 2023-08-22 04:30:[address] [facility] ([facility]) EMERGENCY PROVIDER REPORT REPORT#:[id number] REPORT STATUS: Signed DATE:08/22/23 TIME: 0430 PATIENT: BASIM GUERRERO UNIT #: [id number] ROOM/BED: AGE: 38 SEX: F PCP PHYS: No Primary or Family Physician SERVICE AUTHOR: Dali Mar DO * ALL edits or amendments must be made on the electronic/computer document * HPI- Female Free Text HPI Notes Free Text HPI Notes 38 y.o female with hx of HTN, preDM, depression c/o acute onset of right flank pain that radiates to the right side of her abdomen, started at 1 am today. Pt took 1000 mg of Tylenol at home without relief of symptoms. Denied N,V,D, fever , chills, dysuria or any other symptoms. General Initial Greet Date/Time 08/22/23413 Presentation Chief Complaint Flank pain R )( Sudden in Onset? Yes Review of Systems ROS Statements All systems rev neg except as marked. Past Medical History - Adult Stated Complaint RIGHT FLANK PAIN X 2 HOURS Allergies Coded Allergies: metronidazole (Severe, ANAPHALACTIC SHOCK 06/29/23) DRUG INGREDIENT Fam METRONIDAZOLE lamotrigine (From LAMICTAL) (ANAPHYLLAXIS 06/29/23) Home Medications Reported Medications LISINOPRIL (ZESTRIL) 10 MG PO DAILY LIRAGLUTIDE (VICTOZA (6mL)) (Unknown Dose) SUBQ DAILY Calculated Suicide Risk (nurs) No risk Smoking status for patients 13 years old or older: Never Smoker Physical Exam Vital Signs Vital Signs First Documented: Result Date Time Pulse Ox 97 08/22 411 B/P 139/90 08/22 411 B/P Mean 106 08/22 411 O2 Delivery Room air 08/22 411 Temp 36.5 08/22 411 Pulse 65 08/22 411 Resp 17 08/22 411 Last Documented: Result Date Time Pulse Ox 97 08/22 557 B/P 166/93 08/22 557 B/P Mean 117 08/22 557 Pulse 75 08/22 557 Resp 18 08/22 557 O2 Delivery Room air 08/22 411 Temp 36.5 08/22 411 Review of Vital Signs Reviewed Basic Physical Exam Basic PE GEN: Well appearing/NAD, HEAD: Atraumatic/NC, EYES: PERRL, conj clear, ENT: Membranes moist, NECK: Supple, RESP: No resp distress, CV: Reg rate rhythm, ABD: Soft/non-tender, EXT: No gross abnormality, SKIN: No rashes, warm/ dry, NEURO: alert oriented, NEURO: gross movement NL, PSYCH: NL thought content Focused PE General/Const General/Const Awake, Alert (pacing in the room,) Resp/Chest Respiratory/Chest Breath sounds = bilat, No respiratory distress Cardiovascular Cardiovascular Regular rhythm, Heart sounds NL Abdomen/GI Abdomen/GI Soft, Non-tender, No rebound MS Back Back No CVA tenderness Interpretation Diagnostics Lab Results Interpretation Results Laboratory Tests: 08/22 08/22 08/22 08/22 0450 0449 0442 0440 Chemistry POC Sodium (134 - 147 mmol/L) 142 POC Potassium (3.4 - 5.8 mmol/L) 3.4 POC Chloride (100 - 108 mmol/L) 106 POC Total CO2 (24 - 30 mmol/L) 26 POC Anion Gap (0 - 20) 10 POC BUN (3 - 25 mg/dL) 10 POC Creatinine (0.6 - 1.3 mg/dL) 0.9 Est GFR (CKD-EPI 2020) (>or=60 mL/min) 83 POC Glucose (70 - 110 mg/dL) 114 H POC Calcium (7.0 - 11.0 mg/dL) 9.8 POC Total Bilirubin (0.0 - 1.0 mg/dL) 0.4 POC AST (15 - 37 U/L) 21 POC ALT (30 - 65 U/L) 24 L POC Alk Phosphatase (20 - 125 U/L) 76 POC Total Protein (5.0 - 8.0 g/dL) 7.5 POC Albumin (3.5 - 5.0 g/dL) 3.4 L Hematology POC WBC (4.1 - 10.4 10 3/uL) 9.0 POC RBC (3.43 - 5.21 10 6/uL) 4.49 POC Hgb (10.9 - 14.8 g/dL) 12.6 POC Hct (32.5 - 46.2 %) 37.8 POC MCV (82.5 - 98.0 fL) 84.2 POC MCH (26.1 - 32.9 pg) 28.1 POC MCHC (30.7 - 34.9 g/dL) 33.3 POC RDW Coeff of Ila (11.8 - 16.4 %) 14.1 POC Platelet Count (136 - 388 10 3/uL) 336 POC MPV (7.9 - 13.3 fL) 10.1 POC Mixed Cells % (4.7 - 13.3 %) 3.9 L POC Neut # (2.4 - 7.5 10 3/uL) 6.00 POC Lymph # (1.0 - 3.4 k/mm3) 2.60 POC [place] # (0.3 - 1.1 10 3/uL) 0.4 POC Lymphocytes % (13.9 - 44.4 %) 29.0 POC Neutrophils % (49.1 - 76.9 %) 67.1 Urines POC Urine Color (Yellow) Yellow POC Urine Appearance (Clear) Clear POC Urine pH (5.0 - 8.0) 5.5 POC Ur Specif [place] (1.001 - 1.035) >= 1.030 POC Urine Protein (Negative) Negative POC Ur Glucose (UA) (Negative) Negative POC Urine Ketones (Negative) Negative POC Urine Blood (Negative) Large A POC Urine Nitrite (Negative) Negative POC Urine Bilirubin (Negative) Negative POC Urine Urobilinogen (0.2 - 1.0 E.U/dL) 0.2 POC U Leukocyte Esteras (Negative) Negative POC Urine HCG, Qual (Negative) Negative Recent Impressions: CAT SCAN - CT ABD PELVIS W/O CONT 08/22 518 Report Impression - Status: SIGNED Entered: 08/22/202341 IMPRESSION: 1. 5.1 mm right distal 3rd ureteric stone with moderate right hydronephrosis and hydroureter. Impression By: [email or web address] - Woodrow Casiano M.D. Re-Evaluation MDM Free Text MDM Notes Additional Text 5.1 mm distal R ureter stone with hydronephrosis. Pt received 15 mg of Toradol and 4 mg of Morphine. Pain improved but still quite intense per pt. Will admit for pain control, continue IVH. ED Course Medication(s) Ordered Medication(s) Ordered: Central Nervous System Agents Sig/Radha Start time Last Medication Dose Route Stop Time Status Admin Morphine Sulfate 4 MG ONCE ONE 08/22 645 AC IV 08/22 646 Morphine Sulfate 4 MG ONCE ONE 08/22 545 DC 08/22 IV 08/22 546 0547 Ketorolac 15 MG ONCE ONE 08/22 430 DC 08/22 Tromethamine IV 08/22 431 0443 Electrolytic, Caloric, And Alana Sig/Radha Start time Last Medication Dose Route Stop Time Status Admin Sodium Chloride 1,000 ML X1ED STA 10/22 0640 AC IV 08/22 1319 Sodium Chloride 1,000 ML X1ED STA 08/22 0544 AC 08/22 IV 08/22 0643 0548 Sodium Chloride 1,000 ML X1ED STA 08/22 0427 DC 08/22 IV 08/22 0526 0441 Gastrointestinal Drugs Sig/Radha Start time Last Medication Dose Route Stop Time Status Admin Ondansetron HCl 4 MG ONCE ONE 08/22 0545 DC 08/22 IV 08/22 0546 0546 Differential Diagnosis Differential Diagnosis Cystitis, acute, Ectopic , Pyelonephritis, acute , Urinary obstruction, Urinary tract infection, Urolithiasis Patient Discharge Departure Vital Signs/Condition Vital Signs First Documented: Result Date Time Pulse Ox 97 08/22 0411 B/P 139/90 08/22 0411 B/P Mean 106 08/22 041 O2 Delivery Room air 08/22 041 Temp 36.5 08/22 041 Pulse 65 08/22 0411 Resp 17 08/22 0411 Last Documented: Result Date Time Pulse Ox 97 08/22 0557 B/P 166/93 08/22 0557 B/P Mean 117 08/22 0557 Pulse 75 08/22 0557 Resp 18 08/22 0557 O2 Delivery Room air 08/22 041 Temp 36.5 08/22 0411 All vital signs available at the time of this entry have been reviewed. Condition Stable Clinical Impression Clinical Impression Primary Impression: Renal lithiasis Disposition Decision Transfer )( Request Time 0636 )( Request Date 08/22/23 Call Returned Time 0637 Spoke with: Attending physician [facility] Transfer Accepted Yes Accepted by: Dr. Pak )( Acceptance Time 06 )( Acceptance Date 08/22/23 Transfer Reason Higher level of care Patient Status Stable for transfer Patient Informed Yes Consent Obtained yes at 0641 [facility] #:[id number] END OF REPORT [facility] 2023-06-29 21:00:[address] [facility] ([facility] EMERGENCY PROVIDER REPORT REPORT#:[id number] REPORT STATUS: Signed DATE:06/29/23 TIME: 2100 PATIENT: BASIM GUERRERO UNIT #: [id number] ROOM/BED: AGE: 38 SEX: F PCP PHYS: No Primary or Family Physician SERVICE AUTHOR: Matt Guido MD * ALL edits or amendments must be made on the electronic/computer document * HPI-General Illness Free Text HPI Notes Free Text HPI Notes Patient is a 38-year-old female presents emergency department with dizziness lightheadedness and chest pain. Patient states that she has been having this off and on for the past year and a half has seen her primary doctor has referral to a waste duster. Had an EKG done yesterday as part of routine work-up and blood work to be done next week. 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 She was brought here for evaluation. Patient denies any fever, chills, recent illness. Symptoms were the same as they have in the past before. General Initial Greet Date/Time 06/29/232046 Presentation Chief Complaint Chest pain, Dizziness Review of Systems ROS Statements All systems rev neg except as marked. Past Medical History - Adult Stated Complaint CHEST PAIN TO LEFT ARM Allergies Coded Allergies: metronidazole (Severe, ANAPHALACTIC SHOCK 06/29/23) DRUG INGREDIENT Fam METRONIDAZOLE lamotrigine (From LAMICTAL) (ANAPHYLLAXIS 06/29/23) Home Medications Reported Medications No Known Home Medications Review of Nursing Notes Rev avail, and agree Smoking status for patients 13 years old or older: Never Smoker Physical Exam Vital Signs Vital Signs First Documented: Result Date Time Pulse Ox 100 06/29 2044 B/P 150/93 06/29 2044 B/P Mean 112 06/29 2044 O2 Delivery Room air 06/29 2044 Temp 36.8 06/29 2044 Pulse 92 06/29 2044 Resp 06/29 Last Documented: Result Date Time Pulse Ox 100 06/29 2220 B/P 141/86 06/29 2220 B/P Mean 104 06/29 2220 O2 Delivery Room air 06/29 2220 Pulse 72 06/29 2220 Resp 16 06/29 2220 Temp 36.8 06/29 2044 Review of Vital Signs Reviewed Basic Physical Exam Basic PE HEAD: Atraumatic/NC, EYES: PERRL, conj clear, ENT: Membranes moist, NECK: Supple, RESP: No resp distress, CV: Reg rate rhythm, ABD: Soft/non- tender, EXT: No gross abnormality, SKIN: No rashes, warm/dry, NEURO: alert oriented, NEURO: gross movement NL, PSYCH: NL thought content Physical Exam General/Const Distress/Hydration Distress mild. Interpretation Diagnostics Lab Results Interpretation Results Laboratory Tests: 06/29 06/29 06/29 06/29 06/29 2247 2131 2125 2118 2112 Blood Gas Sodium (134 - 147 mmol/L) 140 Potassium (3.4 - 5.0 mmol/L) 3.5 Chloride (100 - 108 mmol/L) 106 Ionized Calcium (1.12 - 1.32 MMOL/L) 1.14 Chemistry POC Creatinine (0.6 - 1.0 mg/dL) 0.6 POC Glucose (mg/dL) (70 - 110 MG/DL) 89 Rapid Troponin I (<0.05) < 0.05 Coagulation POC D-Dimer (0 - 500 ng/mLDDU) 694 *H Hematology POC WBC (4.1 - 10.4 10 3/uL) 11.0 H POC RBC (3.43 - 5.21 10 6/uL) 4.84 POC Hgb (10.9 - 14.8 g/dL) 13.5 POC Hct (32.5 - 46.2 %) 40.4 POC MCV (82.5 - 98.0 fL) 83.5 POC MCH (26.1 - 32.9 pg) 27.9 POC MCHC (30.7 - 34.9 g/dL) 33.4 POC RDW Coeff of Ila (11.8 - 16.4 %) 14.9 POC Platelet Count (136 - 388 325 10 3/uL) POC MPV (7.9 - 13.3 fL) 10.0 POC Mixed Cells % (4.7 - 13.3 %) 4.7 POC Neut # (2.4 - 7.5 10 3/uL) 7.10 POC Lymph # (1.0 - 3.4 k/mm3) 3.40 POC [place] # (0.3 - 1.1 10 3/uL) 0.5 POC Lymphocytes % (13.9 - 44.4 %) 30.9 POC Neutrophils % (49.1 - 76.9 %) 64.4 Urines POC Urine pH (5.0 - 7.0) 5 Ur Specific [place] (1.005 - 1.030) 1.025 POC Urine Protein (NEGATIVE) NEGATIVE POC Ur Glucose (UA) (NEGATIVE) NEGATIVE POC Urine Ketones (NEGATIVE) NEGATIVE POC Urine Blood (NEGATIVE) 1+ H POC Urine Nitrite (Negative) NEGATIVE Urine Bilirubin (NEGATIVE) NEGATIVE POC Urine Urobilinogen (0.2 - 1.0) NORMAL POC U Leukocyte Esteras (NEGATIVE) Negative Recent Impressions: RADIOLOGY - XR CHEST 1 V 06/29 2116 Report Impression - Status: SIGNED Entered: 06/29/20232128 IMPRESSION: No acute disease. Impression By: Afia Deshpande M.D. CAT SCAN - CTA CHEST FOR PE 06/29 2206 Report Impression - Status: SIGNED Entered: 06/29/20232216 IMPRESSION: 1. No evidence of pulmonary embolism to the segmental level , or other acute cardiopulmonary disease. Impression By: [email or web address] - Naya Nguyen M.D. Re-Evaluation MDM Free Text MDM Notes Free Text MDM Notes Patient is a 38-year-old female presents emergency department with dizziness lightheadedness and chest pain. Patient states that she has been having this off and on for the past year and a half has seen her primary doctor has referral to a waste duster. Had an EKG done yesterday as part of routine work-up and blood work to be done next week. 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 She was brought here for evaluation. Patient denies any fever, chills, recent illness. Symptoms were the same as they have in the past before. Patient's physical exam is normal. Heart is normal, lungs are clear. Patient feels improved. Laboratory tests were done 2 set of cardiac enzymes are negative D- dimer is mildly elevated but CTA showed no sign of pulmonary emboli. Blood work was normal. Patient feels much improved. As patient is currently getting work- up for the symptoms are lasted a year and a half we will discharge patient home have her continue her work-up as directed. Diagnosis is acute near syncope and dizziness. Complexity is moderate with possibly decompensation moderate. Patient was to follow-up with your PCP return for worsening symptoms ED Course Medication(s) Ordered Medication(s) Ordered: Cardiovascular Drugs Sig/Radha Start time Last Medication Dose Route Stop Time Status Admin Nitroglycerin 1 PATCH X1ED STA 06/29 2104 DC 06/29 TRANSDERM 06/29 Central Nervous System Agents Sig/Radha Start time Last Medication Dose Route Stop Time Status Admin Aspirin 324 MG X1ED STA 06/29 2104 DC 06/29 PO 06/29 Diagnostic Agents Sig/Radha Start time Last Medication Dose Route Stop Time Status Admin Iopamidol 100 ML .STK-MED ONE 06/29 2203 DC 06/29 IV 06/29 MDM-Independent Interpretation My ECG Interpretation Normal sinus rhythm at 82 with T wave inversions in aVR and V1 and III. Flattening T in aVF. Left axis deviation. Patient Discharge Departure Vital Signs/Condition Vital Signs First Documented: Result Date Time Pulse Ox 100 06/29 2044 B/P 150/93 06/29 2044 B/P Mean 112 06/29 2044 O2 Delivery Room air 06/29 2044 Temp 36.8 06/29 2044 Pulse 92 06/29 2044 Resp 16 06/29 2044 Last Documented: Result Date Time Pulse Ox 100 06/29 2220 B/P 141/86 06/29 2220 B/P Mean 104 06/29 2220 O2 Delivery Room air 06/29 2220 Pulse 72 06/29 2220 Resp 06/29 Temp 36.8 06/29 2044 All vital signs available at the time of this entry have been reviewed. Clinical Impression Clinical Impression Primary Impression: Near syncope Secondary Impressions: Chest pain, Dizziness Disposition Decision Discharge )( Discharged to Home Yes )( Time 2346 )( Date 06/29/23 Discharge/Care Plan Counseled Regarding Diagnosis, Lab results, Imaging studies, Need for follow-up, When to return to ED (Auto) Prescriptions Current Visit Scripts No Known Home Medications Patient Instructions ED Chest Pain, Noncardiac, ED Dizziness, Uncertain Cause, ED Near-Fainting, Uncertain Cause Departure Forms WORK/SCHOOL EXCUSE VARIABLE Discharge Note I have spoken with the patient and/or caregivers. I have explained the patient's condition, diagnoses and treatment plan based on the information available to me at this time. I have answered the patient's and/or caregiver's questions and addressed any concerns. The patient and/or caregivers have as good an understanding of the patient's diagnosis, condition and treatment plan as can be expected at this point. The vital signs have been stable. The patient's condition is stable and appropriate for discharge from the emergency department. The patient will pursue further outpatient evaluation with the primary care physician or other designated or consulting physician as outlined in the discharge instructions. The patient and/or caregivers are agreeable to this plan of care and follow-up instructions have been explained in detail. The patient and/or caregivers have received these instructions in written format and have expressed an understanding of the discharge instructions. The patient and/or caregivers are aware that any significant change in condition or worsening of symptoms should prompt an immediate return to this or the closest emergency department or a call to 911. at 2348 RPT #:[id number] END OF REPORT [facility]
[2024-12-23] MEDS ORDERED: ASPIRIN 81 MG CHEWABLE TABLET ONE (10:17)
--- NOTE | 2024-12-23 10:24 | EDPHYS ---
Physician Documentation [facility] Name: Kaylin Grimaldo Age: 39 yrs Sex: Female : 1985 Arrival Date: 12/23/2024 Time: 09:43 Bed 7 Private MD: ED Physician Scott Christian HPI: 12/23 09:53 This 39 yrs old Female presents to ER via Unassigned with complaints of Chest kb Tightness, Shortness Of Breath. 09:53 Pt is a 39 year old female with a history of anxiety and HTN who presents for chest kb tightness and shortness of breath that started upon waking this morning at 0730. Denies cough, congestion, fever, chills. States she thought it was her anxiety, but no relief after taking her prozac. Symptoms have been constant, not getting better or worse. . 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 - Infectious Disease History:: Denies. - Social history:: Smoking status: Patient denies any tobacco usage or history of. ROS: 10:14 Constitutional: As per HPI kb Exam: 10:14 Constitutional: This is a well developed, well nourished patient who is awake, alert, kb and in no acute distress. Head/Face: Normocephalic, atraumatic. ENT: Moist Mucous membranes Cardiovascular: Regular rate Respiratory: Respirations even and unlabored. No increased work of breathing. Talking in full sentences Skin: Warm, dry with normal turgor. Normal color. MS/ Extremity: Pulses equal, no cyanosis. Neurovascular intact. Full, normal range of motion. Neuro: Awake and alert, GCS 15, oriented to person, place, time, and situation. 10:45 ECG was reviewed by the Attending Physician. [facility] 10:57 ECG was reviewed by the Attending Physician. lu Vital Signs: 10:00 BP 149 / 93; Pulse 72; Resp 19; Pulse Ox 100% ; Weight 111.13 kg; Height 5 ft. 8 in. ; ap3 Pain 4/10; 10:20 Weight 105.69 kg (M); iw 10:30 BP 169 / 97; Pulse 82; Resp 18; Pulse Ox 100% on 3 lpm NC; ld1 11:02 BP 177 / 83; Pulse 90; Resp 19; Temp 97.8; Pulse Ox 99% 2 lpm ; Pain 0/10; iw 10:00 Body Mass Index 37.25 (105.69 kg, 172.72 cm) ap3 10:00 Pain Scale: Adult ap3 11:02 Pain Scale: Adult iw MDM: 09:48 Medical Screening Exam initiated kb 10:15 Differential diagnosis: acute FL, arrhythmia, anxiety attack, PE. Data reviewed: vital kb signs, nurses notes. Transition of care: After a detail discussion of the patient's case, care is transferred to Scott Christian MD. 12/23 09:53 Order name: CBC with Diff; Complete Time: 10:55 kb 12/23 09:53 Order name: D-Dimer; Complete Time: 10:55 kb 12/23 09:53 Order name: Magnesium; Complete Time: 10:55 kb 12/23 09:53 Order name: NT PRO-BNP; Complete Time: 10:55 kb 12/23 09:53 Order name: Troponin HS; Complete Time: 10:55 kb 12/23 09:53 Order name: CMP; Complete Time: 10:55 kb 12/23 09:53 Order name: XRAY Chest (1 view) 12/23 10:42 Order name: EKG; Complete Time: 10:43 [facility] 12/23 09:53 Order name: Cardiac monitoring; Complete Time: 10:16 kb 12/23 09:53 Order name: EKG - Nurse/Tech; Complete Time: 10:16 kb 12/23 09:53 Order name: IV Saline Lock; Complete Time: 10:29 kb 12/23 09:53 Order name: Labs collected and sent; Complete Time: 10:29 kb 12/23 09:53 Order name: O2 Per Protocol; Complete Time: 10:16 kb 12/23 09:53 Order name: O2 Sat Monitoring; Complete Time: 10:16 kb 12/23 10:21 Order name: NPO; Complete Time: 10:29 lu 12/23 10:21 Order name: IV Saline Lock - Large Bore; Complete Time: 12/23 10:42 Order name: EKG - Nurse/Tech; Complete Time: : lu EC:45 Rate is 72 beats/min. Rhythm is regular. QRS Osteen is Normal. WI interval is normal. QRS lu interval is normal. QT interval is normal. No Q waves. T waves are Normal. ST Segment is elevated in leads II, III, aVF, V4, V5, V6. Clinical impression: Inferior FL - acute. Interpreted by me. Reviewed by me. 10: Rate is 79 beats/min. Rhythm is regular. QRS Osteen is Normal. WI interval is normal. QRS lu interval is normal. QT interval is normal. No Q waves. T waves are Normal. ST Segment is elevated in leads II, III, aVF, V4, V5, V6. Clinical impression: Inferior FL - acute. Interpreted by me. Reviewed by me. Administered Medications: 10:19 Drug: Aspirin PO Chewable Tablet 324 mg PO once; 81 mg tablets x 4 Route: PO; ld1 11:34 Follow up: Response: No adverse reaction iw 10:40 Drug: Heparin (FL-Bolus with thrombolytic) - HEParin IVP 60 units/kg IVP once; Max 4000 iw units {Co-Signature: ld1 (Gladis Hobbs RN).} Route: IVP; Site: right antecubital; 10:40 Drug: Heparin ([place] Drip) 12 units/kg/[place] - ([place] [address] units, D5W IV 500 ml) IV at iw calculated rate Per protocol; Max initial rate 1000 units/hr {Co-Signature: ld1 (Gladis Hobbs RN).} Route: IV; Rate: calculated rate; Site: right antecubital; 11:34 Follow up: IV Status: Infusion continued upon transfer iw 10:40 Drug: Clopidogrel PO 300 mg PO once Route: PO; iw 11:34 Follow up: Response: No adverse reaction iw 10:45 Drug: Tenecteplase IV (Administer 10 ml NS flush BEFORE and AFTER tenecteplase) 50 mg iw IV at per protocol once {Co-Signature: ld1 (Gladis Hobbs RN).} Route: IV; Rate: per protocol; Site: right antecubital; 10:46 Follow up: IV Status: Completed infusion iw 11:02 Drug: Ondansetron IVP 4 mg IVP once; over 2 minutes Route: IVP; Site: left antecubital; iw 11:35 Follow up: Response: No adverse reaction iw 11:09 Not Given (Patient Refused): morphineor iv 2 mg IVP once over 4 mins iw 11:10 Drug: NS 0.9% IV 1000 ml IV at 1000 ml once; to be given as a bolus over 60 minutes iw Route: IV; Rate: 1000 ml; Site: left antecubital; 11:35 Follow up: IV Status: Infusion continued upon transfer iw 11:34 Not Given (Patient Refused): [id number] mg IVP once; dilute with 10 mL 0.9% NaCl; iw give over 2 minutes 11:35 Not Given (Patient Refused): morphineor iv 2 mg IVP once over 4 mins iw Disposition: 10:21 Co-signature as Attending Physician, Scott Christian MD I agree with the assessment and lu plan of care. 10:58 Critical Care:. lu Disposition Summary: 12/23/24 10:24 Transfer Ordered Notes: Transfer Location: [facility] lu Reason: Higher level of care lu Condition: Serious lu Problem: new lu Symptoms: are unchanged lu Accepting Physician: TO [facility](12/23/24 11:36) iw Diagnosis - ST elevation (STEMI) myocardial infarction involving right coronary artery lu - Chest pain, unspecified lu - Obesity, unspecified lu - Dyspnea lu Forms: - Medication Reconciliation Form lu - SBAR form lu Critical care time excluding procedures: 10:57 Critical care time: Bedside Care: 20 minutes, Consultation: 10 minutes. Total time: 30 kb minutes 10:58 Critical care time: Bedside Care: 30 minutes, Consultation: 15 minutes, Family lu Intervention: 10 minutes. Total time: 55 minutes Signatures: Dispatcher [employer] Khalida Ponce, WIRELESS TEAM MEMBER-C WIRELESS TEAM MEMBER-Scott Ku MD MD cha Williams, Irene RN RN iw Juju Wilkerson RN RN ap3 Gladis Hobbs RN RN ld1 Gladis Hobbs RN ld1 Corrections: (The following items were deleted from the chart) 09:53 09:53 Chest Single View+RAD.RAD.BRZ ordered. EDMS EDMS 11:36 10:24 TO [facility]
--- NOTE | 2024-12-23 10:24 | ER ---
Nurse's Notes [facility] Name: Kaylin Grimaldo Age: 39 yrs Sex: Female : 1985 Arrival Date: 12/23/2024 Time: 09:43 Bed 7 Private MD: Diagnosis: ST elevation (STEMI) myocardial infarction involving right coronary artery;Chest pain, unspecified;Obesity, unspecified;Dyspnea Presentation: 12/23 10:00 Chief complaint: Patient states: she was having chest tightness and shortness of breath ap3 that started at approx 0730 this morning. patient states she took her blood pressure medications at 0745. patient currently rates her pain as a 4/10 and that it is improving. Coronavirus screen: At this time, the client does not indicate any symptoms associated with coronavirus-19. Ebola Screen: No symptoms or risks identified at this time. Initial Sepsis Screen: Does the patient meet any 2 criteria? No. Patient's initial sepsis screen is negative. Does the patient have a suspected source of infection? No. Patient's initial sepsis screen is negative. Risk Assessment: Do you want to hurt yourself or someone else? Patient reports no desire to harm self or others. Onset of symptoms was December 23, 2024 at 07:30. 10:00 Method Of Arrival: Ambulatory ap3 10:00 Acuity: PATY 1 ap3 Triage Assessment: 10:00 General: Appears comfortable, Behavior is calm, cooperative. Pain: Complains of pain in ap3 chest Pain currently is 4 out of 10 on a pain scale. Quality of pain is described as pressure. Neuro: Level of Consciousness is awake, alert, obeys commands, Oriented to person, place, time, situation, Appropriate for age Cardiovascular: Reports chest pain, shortness of breath, Patient's skin is warm and dry. Respiratory: Reports shortness of breath on exertion Airway is patent. PRESS TENDER SHORT GOODS: 10:28 LMP 12/20/2024, unknown ap3 Historical: - Allergies: 10:26 Flagyl; ap3 10:26 Lamictal; ap3 - Home Meds: 10:26 lisinopril 40 mg oral tablet daily [Active]; Prozac 20 mg Oral capsule daily [Active]; ap3 - PMHx: 10:26 CPTSD; Hypertensive disorder; POTS; Anxiety; ap3 - Immunization history:: Client reports receiving the 2nd dose of the Covid vaccine, Flu vaccine is not up to date. - Infectious Disease History:: Denies. - Social history:: Smoking status: Patient denies any tobacco usage or history of. Screenin:28 Abuse screen: Denies threats or abuse. Nutritional screening: No deficits noted. ap3 Tuberculosis screening: No symptoms or risk factors identified. 10:29 [facility] ED Fall Risk Assessment (Adult) History of falling in the last 3 months, ap3 including since admission Yes- fall prone (multiple falls) (3 pts) Confusion or Disorientation No (0 pts) Intoxicated or Sedated No (0 pts) Impaired Gait No (0 pts) Mobility Assist Device Used No (0 pt) Altered Elimination No (0 pt) Score/Fall Risk Level 3 or more points = High Risk Oriented to surroundings, Maintained a safe environment, Educated pt \\T\\ family on fall prevention, incl call for assistance when getting out of bed, Assessed \\T\\ reinforced patient's understanding of fall precautions, Hourly rounding (assess needs \\T\\ fall precautionary measures) done, Used ambulatory aids as needed (educated on \\T\\ assisted with), Implemented a Fall Risk Plan of Care, Placed fall mat w/ non beveled edge next to bed, Remained w/in arm's length of patient and in sight while toileting, Offered frequent toileting (1:1 observation), Remained with patient while ambulating. Assessment: 10:30 Pain: Pain began 0730 this morning. ap3 10:30 General: Appears in no apparent distress. comfortable, Behavior is calm, cooperative, ld1 appropriate for age. Pain: Complains of pain in chest Pain does not radiate. Pain currently is 6 out of 10 on a pain scale. Quality of pain is described as crampy, heavy, Pain began 3 hours ago. Is intermittent. Neuro: Level of Consciousness is awake, alert, obeys commands, Oriented to person, place, time, situation. Cardiovascular: Capillary refill < 3 seconds Patient's skin is warm and dry. Rhythm is sinus rhythm Chest pain is described as severe, 3 hours ago. Respiratory: Airway is patent Respiratory effort is even, unlabored. GI: Abdomen is round non-distended. : No signs and/or symptoms were reported regarding the genitourinary system. EENT: No signs and/or symptoms were reported regarding the EENT system. Derm: No signs and/or symptoms reported regarding the dermatologic system. Derm: No signs and/or symptoms reported regarding the dermatologic system. 10:32 Reassessment: Pt reports feeling better at this time - states "I am feeling much better ld1 than when I arrived to the ER.". 11:21 Reassessment: Patient appears in no apparent distress at this time. Patient and/or iw family updated on plan of care and expected duration. Pain level reassessed. Patient is alert, oriented x 3, equal unlabored respirations, skin warm/dry/pink. Patient denies pain at this time. 11:22 Reassessment: [facility] at bedside to receive pt. iw Vital Signs: 10:00 BP 149 / 93; Pulse 72; Resp 19; Pulse Ox 100% ; Weight 111.13 kg; Height 5 ft. 8 in. ; ap3 Pain 4/10; 10:20 Weight 105.69 kg (M); iw 10:30 BP 169 / 97; Pulse 82; Resp 18; Pulse Ox 100% on 3 lpm NC; ld1 11:02 BP 177 / 83; Pulse 90; Resp 19; Temp 97.8; Pulse Ox 99% 2 lpm ; Pain 0/10; iw 10:00 Body Mass Index 37.25 (105.69 kg, 172.72 cm) ap3 10:00 Pain Scale: Adult ap3 11:02 Pain Scale: Adult iw ED Course: 09:45 Patient arrived in ED. mr 09:48 Bandar Khalida, INGRID[facility] kb 09:48 Scott Christian MD is Attending Physician. kb 10:[address] Christian called [facility] transfer center talked to Zulma. sp 10:[address] Hermelindo Bray accepted pt to [facility] 1032 admin approval Joselin Alfaro RN TC to Airport Operations Crew Member- report number [phone] fax [phone]. 1041 called [facility] to transport pt, will be here in 30 min. 10:20 Initial lab(s) drawn, by ED staff, sent to lab. Inserted saline lock: 20 gauge in left iw antecubital area, using aseptic technique. Blood collected. Flushed with 10 mL NS. Oxygen administration via nasal cannula \\T\\ 2L/min. 10:22 Amanda Sebastian, TIMUR is Primary Nurse. iw 10:26 Triage completed. ap3 10:28 EKG done, by ED staff, reviewed by Scott Christian MD. ap3 10:28 Client placed on continuous cardiac and pulse oximetry monitoring. NIBP monitoring ap3 applied. cash posting representative on. Pulse ox on. NIBP on. 10:29 Arm band placed on right wrist. ap3 10:30 No provider procedures requiring assistance completed. Accessed peripheral vein via ld1 ultrasound, utilizing dynamic ultrasound technique using 18G Nexia IV Catheter Clean \\T\\ dry. Dressing intact. Good blood return. Flushes easily. 10:30 Patient has correct armband on for positive identification. Placed in gown. Bed in low ld1 position. Call light in reach. Side rails up X2. cash posting representative on. NIBP on. Door closed. Noise minimized. Warm blanket given. 10:40 pt consented for 50 mg TNK IVP by Dr. Christian. iw 10:46 XRAY Chest (1 view) In Process Unspecified. EDMS 11:21 Patient transferred, IV remains in place. iw 11:26 updated bed assignment [facility] 6106 report number [phone] updated [facility] crew who was on site loading pt for transfer. Administered Medications: 10:19 Drug: Aspirin PO Chewable Tablet 324 mg PO once; 81 mg tablets x 4 Route: PO; ld1 11:34 Follow up: Response: No adverse reaction iw 10:40 Drug: Heparin ([place]-Bolus with thrombolytic) - HEParin IVP 60 units/kg IVP once; Max 4000 iw units {Co-Signature: ld1 (Gladis Hobbs RN).} Route: IVP; Site: right antecubital; 10:40 Drug: Heparin ([place] Drip) 12 units/kg/[place] - ([place] [address] units, D5W IV 500 ml) IV at iw calculated rate Per protocol; Max initial rate 1000 units/hr {Co-Signature: ld1 (Gladis Hobbs RN).} Route: IV; Rate: calculated rate; Site: right antecubital; 11:34 Follow up: IV Status: Infusion continued upon transfer iw 10:40 Drug: Clopidogrel PO 300 mg PO once Route: PO; iw 11:34 Follow up: Response: No adverse reaction iw 10:45 Drug: Tenecteplase IV (Administer 10 ml NS flush BEFORE and AFTER tenecteplase) 50 mg iw IV at per protocol once {Co-Signature: ld1 (Gladis Hobbs RN).} Route: IV; Rate: per protocol; Site: right antecubital; 10:46 Follow up: IV Status: Completed infusion iw 11:02 Drug: Ondansetron IVP 4 mg IVP once; over 2 minutes Route: IVP; Site: left antecubital; iw 11:35 Follow up: Response: No adverse reaction iw 11:09 Not Given (Patient Refused): morphineor iv 2 mg IVP once over 4 mins iw 11:10 Drug: NS 0.9% IV 1000 ml IV at 1000 ml once; to be given as a bolus over 60 minutes iw Route: IV; Rate: 1000 ml; Site: left antecubital; 11:35 Follow up: IV Status: Infusion continued upon transfer iw 11:34 Not Given (Patient Refused): [id number] mg IVP once; dilute with 10 mL 0.9% NaCl; iw give over 2 minutes 11:35 Not Given (Patient Refused): morphineor iv 2 mg IVP once over 4 mins iw Medication: 10:30 VIS not applicable for this client. ld1 Outcome: 10:24 ER care complete, transfer ordered by . lu 11:35 Transferred by [facility] . to [facility], Transfer form iw completed. X-rays sent w/ patient. 11:35 Condition: stable 11:35 Discharge instructions given to patient, Instructed on the need for transfer, Demonstrated understanding of instructions, 11:36 Patient left the ED. iw Signatures: Dispatcher [employer] EDMS Khalida Portillo, JUVENILE OFFICER-C JUVENILE OFFICER-Scott Ku MD MD cha Pinkerton, Shawna sp Rivera, Susana, Reg Reg mr Amanda Sebastian, RN RN Juju Caruso RN RN ap3 Gladis Hobbs, TIMUR RN ld1 Gladis Hobbs RN ld1 Corrections: (The following items were deleted from the chart) 11:05 10:40 pt consented for 50 mg T[address] IVP by Dr. Christian iw iw
[2024-12-23] MEDS ORDERED: ONDANSETRON 4 MG/2 ML VIAL ONE (10:27)
[2024-12-23] MEDS ORDERED: MORPHINE 2 MG/ML SYR ONE (10:28)
[2024-12-23] MEDS ORDERED: CLOPIDOGREL 75 MG TABLET ONE (10:28)
[2024-12-23 10:29] LABS: Absolute Eosinophils 0.1 K/uL (0-0.5); Absolute Lymphocytes (CBC) 2.4 K/uL (0.7-4.9); Absolute Monocytes 0.4 K/uL (0.1-1.3); Absolute Neutrophil 6.3 K/uL (1.8-8.0); Basophils % 0.5 % (0-1.3); Hematocrit 42.5 % (36.0-45.0); Hemoglobin 13.9 g/dL (12.0-15.0); Lymphocytes % 25.7 % (15.3-44.8); MCH 27.4 pg (27.0-35.0); MCHC 32.7 g/dL (32.0-36.0); MCV 83.6 fL (80-100); MPV 7.6 fL (7.6-11.3); Monocytes % 4.1 % (3.3-12.3); Neutrophils % 68.7 % (41.7-73.7); Nucleated Red Blood Cells % 0.1 % (0-0); Platelets 362 thou/uL (152-406); RBC Red Blood Cell Count 5.08 M/uL (3.86-4.86); Red Cell Distribution Width 14.8 % (12.1-15.2)
[2024-12-23] MEDS ORDERED: TENECTEPLASE 50 MG/10 ML VIAL IV ONE (10:29)
[2024-12-23] MEDS ORDERED: NA CHLORIDE 0.9% 1,000 ML ONE (10:29)
[2024-12-23] MEDS ORDERED: FAMOTIDINE 20 MG/2 ML VIAL IV ONE (10:29)
[2024-12-23] MEDS ORDERED: HEPARIN/D5W 25,000 UNIT/500 ML BAG IV ONE (10:30)
[2024-12-23 10:48] LABS: Albumin 3.6 g/dL (3.4-5.0); Albumin/Globulin Ratio 0.7 (1.1-1.8); Anion Gap 10.6 mEq/L (5.0-15.0); Bilirubin Total 0.3 mg/dL (0.2-1.0); Globulin 5.2 g/dL (2.3-3.5); Magnesium 2.1 mg/dL (1.6-2.4); Potassium 3.6 mEq/L (3.5-5.1); Protein, Total 8.8 g/dL (6.4-8.2)
--- NOTE | 2024-12-23 11:08 | RAD REPORT ---
EXAMINATION: ONE VIEW CHEST XR CLINICAL INDICATION: Female, 39 years old.,CHEST PAIN TECHNIQUE: Frontal chest projection is submitted. Examination is limited by patient positioning and t echnique. COMPARISON: No prior exam. FINDINGS: The lungs are well inflated and clear. No pneumothorax or sizable effusion. The heart is normal in s ize. Mediastinal contours are unremarkable. IMPRESSION: No acute intrathoracic abnormalities.
[2024-12-23 14:31] VITALS: BP 177/83; TEMP 97.8; O2SAT 99
--- NOTE | 2024-12-25 12:03 | EKG ---
Test Date: 2024-12-23 Test Time: 10:11:50 Audio Visual Equipment Rental Clerk: ALP MEASUREMENT RESULTS: Intervals: Rate: 72 DC: 146 QRSD: 82 QT: 420 QTc: 459 [place]: P: 4 DC: 146 QRS: 24 T: 71 INTERPRETIVE STATEMENTS: Age and gender specific ECG analysis Normal sinus rhythm Inferolateral injury pattern ACUTE MD Abnormal ECG No previous ECG available for comparison Electronically Signed On 12-25-24 11:59:47 TENT ASSEMBLER by Lisandro Jeronimo
--- NOTE | 2024-12-25 12:03 | EKG ---
Test Date: 2024-12-23 Test Time: 10:49:50 Screen Printing Loader Unloader: HB MEASUREMENT RESULTS: Intervals: Rate: 79 FL: 142 QRSD: 84 QT: 410 QTc: 470 [place]: P: 46 FL: 142 QRS: 21 T: 72 INTERPRETIVE STATEMENTS: Normal sinus rhythm Acute pericarditis Abnormal ECG Compared to ECG 12/23/2024 10:11:50 Myocardial infarct finding no longer present Electronically Signed On 12-25-24 11:59:36 GLASS TOUGHENING OPERATOR by Lisandro Jeronimo
== END 2024-12-23 11:36 | disposition short-term general hospital (02) ==
LOC: ER 09:43
DX: I21.11 ST elevation (STEMI) myocardial infarction involving right coronary artery (principal); R06.00 Dyspnea, unspecified; E66.9 Obesity, unspecified; I10 Essential (primary) hypertension; F41.9 Anxiety disorder, unspecified
CPT/HCPCS: 36415; 71045; 80053; 83735; 83880; 84484; 85025; 85379; 92977; 93005; 99285; J1644; J2270; J2405; J3101; J7030